=== PATIENT | female | born 1995 | race American Indian/Alaskan Native ===

== ENCOUNTER 2018-05-10 16:14 | Inpatient (IN) | payer OTHER ==
[2018-05-10] MEDS ORDERED: NACL 0.9% 1000 ML 1,000 ML IV ONE (16:36)
[2018-05-10] MEDS ORDERED: BENADRYL IV ONE (16:37)
[2018-05-10] MEDS ORDERED: MORPHINE IV ONE (16:37)
[2018-05-10] MEDS ORDERED: REGLAN IV ONE (16:37)
[2018-05-10] MEDS ORDERED: PEPCID IV ONE (16:38)
--- NOTE | 2018-05-10 16:49 | Emergency Department Report ---
HPI - General Chief Complaint: Abdominal Pain Time Seen by Provider: 05/10/18 16:26 - HPI HPI: Room 7 The patient is a 23-year-old female presenting with a chief complaint of abdominal pain. Patient states her symptoms began 2 days ago with diffuse abdo alexander pain described as a "hurt." Patient denies fever diarrhea or dysuria. Patient admits to nausea and vomiting for the past 2 days as well. Patient denies vaginal bleeding or hematuria. The patient went to [facility] when her symptoms began. The patient says she was evaluated and discharged but never filled her prescription for Phenergan. Patient presented to this ED yesterday and received a pelvic ultrasound which revealed an intrauterine and medication. Per the previous physician's note the patient's pain had resolved. Patient was discharged home. Patient returns to the ED with the same pain. Location: Abdomen Duration: Intermittent 2-3 days Quality: "Hurt" Severity: Severe Modifying factors: [see above] Context: [see above] Mode of transportation: [not driving] ED Past Medical Hx - Surgical History Past Surgical History?: No Additional Surgical History: - Family History Family history: no significant - Social History Smoking Status: Never Smoker Substance Use Type: None (denies illicit drug use) ED Review of Systems ROS: Stated complaint: ABDONIMAL PAIN Other details as noted in HPI Constitutional: denies: fever Eyes: denies: eye pain ENT: denies: throat pain Respiratory: no symptoms reported Cardiovascular: denies: chest pain Endocrine: no symptoms reported Gastrointestinal: abdominal pain, nausea, vomiting. denies: diarrhea Genitourinary: denies: dysuria, discharge, abnormal menses Musculoskeletal: denies: back pain Neurological: denies: headache Physical Exam - Physical Exam Vital Signs: Vital Signs 05/10/18 16:25 Temperature 99.1 F Pulse Rate 60 Respiratory 18 Rate Blood Pressure 165/63 O2 Sat by Pulse 97 Oximetry Physical Exam: GENERAL: The patient is well-developed well-nourished female lying on stretcher. In moderate discomfort. [] HEENT: Normocephalic. Atraumatic. Extraocular motions are intact. Patient has moist mucous membranes. NECK: Supple. Trachea midline CHEST/LUNGS: Clear to auscultation. There is no respiratory distress noted. HEART/CARDIOVASCULAR: Regular. There is no tachycardia. There is no gallop rub or murmur. ABDOMEN: Abdomen is soft, with diffuse tenderness to palpation. There is no rebound or guarding. Patient has normal bowel sounds. There is no abdominal distention. SKIN: There is no rash. There is no edema. There is no diaphoresis. NEURO: The patient is awake, alert, and oriented. The patient is cooperative. The patient has normal speech. MUSCULOSKELETAL: There is no evidence of acute injury. ED Course Vital Signs 05/10/18 16:25 Temperature 99.1 F Pulse Rate 60 Respiratory 18 Rate Blood Pressure 165/63 O2 Sat by Pulse 97 Oximetry - Reevaluation(s) Reevaluation #1: 05/10/18 19:11 Patient improved - Consultations Consultation #1: 05/10/18 18:47 Surgery paged- case discussed with Dr. Arguello, Will consult Consultation #2: 05/10/18 19:03 PROPERTY ADMINISTRATOR paged ED Medical Decision Making - Lab Data Result diagrams: 05/10/18 16:41 05/10/18 16:41 Laboratory Tests 05/10/18 05/10/18 05/10/18 16:41 16:41 16:41 WBC 15.2 H RBC 4.53 Hgb 12.9 Hct 37.2 MCV 82 MCH 28 MCHC 35 H RDW 15.3 H Plt Count 303 Lymph % (Auto) 10.6 L [place] % (Auto) 3.0 Eos % (Auto) 0.0 Baso % (Auto) 0.3 Lymph # 1.6 [place] # 0.5 Eos # 0.0 Baso # 0.1 Seg Neutrophils % 86.1 H Seg Neutrophils # 13.1 H Sodium 136 L Potassium 3.3 L Chloride 97.5 L Carbon Dioxide 22 Anion Gap 20 BUN 3 L Creatinine 0.4 L Estimated GFR > 60 BUN/Creatinine Ratio 8 Glucose 90 Calcium 9.9 Total Bilirubin 0.50 AST 11 ALT 19 Alkaline Phosphatase 81 Total Protein 7.5 Albumin 4.6 Albumin/Globulin Ratio 1.6 Amylase 54 Lipase 12 L HCG, Quant Urine Color Urine Turbidity Urine pH Ur Specific [place] Urine Protein Urine Glucose (UA) Urine Ketones Urine Blood Urine Nitrite Urine Bilirubin Urine Urobilinogen Ur Leukocyte Esterase Urine WBC (Auto) Urine RBC (Auto) U Epithel Cells (Auto) Urine Mucus 05/10/18 05/10/18 16:41 18:00 WBC RBC Hgb Hct MCV MCH MCHC RDW Plt Count Lymph % (Auto) [place] % (Auto) Eos % (Auto) Baso % (Auto) Lymph # [place] # Eos # Baso # Seg Neutrophils % Seg Neutrophils # Sodium Potassium Chloride Carbon Dioxide Anion Gap BUN Creatinine Estimated GFR BUN/Creatinine Ratio Glucose Calcium Total Bilirubin AST ALT Alkaline Phosphatase Total Protein Albumin Albumin/Globulin Ratio Amylase Lipase HCG, Quant 80896 H Urine Color Yellow Urine Turbidity Cloudy Urine pH 6.0 Ur Specific [place] 1.014 Urine Protein 100 mg/dl Urine Glucose (UA) Neg Urine Ketones 80 Urine Blood Neg Urine Nitrite Neg Urine Bilirubin Neg Urine Urobilinogen < 2.0 Ur Leukocyte Esterase Neg Urine WBC (Auto) 2.0 Urine RBC (Auto) 1.0 U Epithel Cells (Auto) 9.0 Urine Mucus 1+ - Radiology Data Radiology results: report reviewed (abdominal ultrasound), image reviewed (abdominal ultrasound) [facility] [address] [place] [address] Ultrasound Report Signed Patient: CAPO HEALY MR#: [id number] : 1995 Acct:[id number] Age/Sex: 23 / F ADM Date: 05/10/18 Loc: ED Attending Dr: Ordering Physician: KELLIE BENITO MD Date of Service: 05/10/18 Procedure(s): US abdomen limited Accession Number(s): [id number] cc: KELLIE BENITO MD FINAL REPORT EXAM: US ABDOMEN LIMITED HISTORY: abdominal pain nausea vomiting TECHNIQUE: Ultrasound abdomen PRIORS: None. FINDINGS: No focal abnormalities identified in the visualized portion liver parenchyma. No evidence of cholelithiasis or gallbladder wall thickening. No pericholecystic fluid seen. The common bile duct is within normal limits measuring 0.38 centimeters Right kidney demonstrates no evidence of hydronephrosis. It measures 10.7 x 5.2 x 6.4 centimeters IMPRESSION: Negative. No evidence of biliary obstruction or cholelithiasis Transcribed By: Cristina Dictated By: ANIYA BREWER MD Electronically Authenticated By: ANIYA BREWER MD Signed Date/Time: 05/10/181841 DD/ 44 TD/TT: 05/10/181844 - Differential Diagnosis hyperemesis gravidarum, cholelithiasis, gastritis Critical care attestation.: If time is entered above; I have spent that time in minutes in the direct care of this critically ill patient, excluding procedure time. ED Disposition Clinical Impression: Abdominal pain, , Ketonuria, Leukocytosis Disposition: OP ADMIT IP TO THIS HOSP Is pt being admited?: Yes Does the pt Need Aspirin: Yes Condition: Fair Instructions: Abdominal Pain (ED) Referrals: PRIMARY CARE,MD [Primary Care Provider] - 3-5 Days Time of Disposition: 19:15 (hospitalist paged (Dr Woods))
[2018-05-10 16:59] LABS: Basophils # (Auto) 0.1 K/mm3 (0.0-0.1); Basophils % (Auto) 0.3 % (0.0-1.8); Hematocrit 37.2 % (30.3-42.9); Hemoglobin 12.9 gm/dl (10.1-14.3); Lymphocytes # (Auto) 1.6 K/mm3 (1.2-5.4); Lymphocytes % (Auto) 10.6 % (13.4-35.0); Mean Corpuscular HGB Conc 35 % (30-34); Mean Corpuscular Hemoglobin 28 pg (28-32); Mean Corpuscular Volume 82 fl (79-97); Monocytes # (Auto) 0.5 K/mm3 (0.0-0.8); Platelet Count 303 K/mm3 (140-440); Red Blood Count 4.53 M/mm3 (3.65-5.03); Red Cell Distribution Width 15.3 % (13.2-15.2)
[2018-05-10 17:15] LABS: Alanine Aminotransferase 19 units/L (7-56); Albumin 4.6 g/dL (3.9-5); BUN/Creatinine Ratio 8; Blood Urea Nitrogen 3 mg/dL (7-17); Calcium 9.9 mg/dL (8.4-10.2); Hemolysis Index 17
--- NOTE | 2018-05-10 18:42 | Ultrasound Report ---
FINAL REPORT EXAM: US ABDOMEN LIMITED HISTORY: abdominal pain nausea vomiting TECHNIQUE: Ultrasound abdomen PRIORS: None. FINDINGS: No focal abnormalities identified in the visualized portion liver parenchyma. No evidence of cholelithiasis or gallbladder wall thickening. No pericholecystic fluid seen. The common bile duct is within normal limits measuring 0.38 centimeters Right kidney demonstrates no evidence of hydronephrosis. It measures 10.7 x 5.2 x 6.4 centimeters IMPRESSION: Negative. No evidence of biliary obstruction or cholelithiasis
[2018-05-10 19:03] LABS: Bilirubin,Urine NEG (Negative); Blood,Urine NEG (Negative); Color,Urine Yellow (Yellow); Mucus,Urine 1+ /HPF; Urobilinogen,Urine < 2.0 mg/dL (<2.0)
[2018-05-10] MEDS ORDERED: SODIUM CHLORIDE FLUSH SYRINGE 10 ML IV PRN (21:52)
[2018-05-10] MEDS ORDERED: TYLENOL PO PRN (21:52)
[2018-05-10] MEDS ORDERED: D5NS 1,000 ML IV SCH (22:00)
--- NOTE | 2018-05-10 22:06 | History and Physical Report ---
History of Present Illness Date of examination: 05/10/18 Date of admission: 05/10/18 Chief complaint: CC Abdominal pain for 3 days History of present illness: [place]: 23-year-old female presenting with a chief complaint of RLQ pain.patient has come to the ER 3 times.Was treted 2 times and was sent home. Patient states her symptoms began 2 days ago with diffuse abdominal pain described as a "hurt." patient is 9 weeks . Patient denies fever diarrhea or dysuria. Patient admits to nausea and vomiting for the past 2 days as well. Patient denies vaginal bleeding or hematuria. The patient went to [facility] when her symptoms began. The patient says she was evaluated and discharged but never filled her prescription for Phenergan. Patient presented to this ED yesterday and received a pelvic ultrasound which revealed an intrauterine and medication. Per the previous physician's note the patient's pain had resolved. Patient was discharged home. Patient returns to the ED with the same pain. Past Medical History None Surgical History Past Surgical History?: No Additional Surgical History: Family History Family history: no significant Social History Smoking Status: Never Smoker Substance Use Type: None (denies illicit drug use) Review of Systems ROS: Stated complaint: ABDONIMAL PAIN Other details as noted in HPI Constitutional: denies: fever Eyes: denies: eye pain ENT: denies: throat pain Respiratory: no symptoms reported Cardiovascular: denies: chest pain Endocrine: no symptoms reported Gastrointestinal: abdominal pain, nausea, vomiting. denies: diarrhea Genitourinary: denies: dysuria, discharge, abnormal menses Musculoskeletal: denies: back pain Neurological: denies: headache Medications and Allergies Allergies Allergy/AdvReac Type Severity Reaction Status Date / Time No Known Allergies Allergy Unverified 05/09/18 18:01 Active Meds: Active Medications Acetaminophen (Tylenol) 650 mg PO Q4H PRN PRN Reason: Pain MILD(1-3)/Fever >100.5/STEEL Dextrose/Sodium Chloride (D5ns) 1,000 mls @ 75 mls/hr IV DIRECT RAISA Ceftriaxone Sodium (Rocephin/Ns 2 Gm/100 Ml) 2 gm in 100 mls @ 200 mls/hr IV Q24HR RAISA; Protocol Morphine Sulfate (Morphine) 2 mg IV Q4H PRN PRN Reason: Pain, Moderate (4-6) Ondansetron HCl (Zofran) 4 mg IV Q8H PRN PRN Reason: Nausea And Vomiting Sodium Chloride (Sodium Chloride Flush Syringe 10 Ml) 10 ml IV BID RAISA Sodium Chloride (Sodium Chloride Flush Syringe 10 Ml) 10 ml IV PRN PRN PRN Reason: LINE FLUSH Exam - Constitutional Vitals: Temp Pulse Resp BP Pulse Ox 98 F 49 L 20 128/64 100 05/10/18 19:37 05/10/18 19:37 05/10/18 19:37 05/10/18 19:37 05/10/18 19:37 General appearance: Present: no acute distress, well-nourished - EENT Eyes: Present: PERRL ENT: hearing intact, clear oral mucosa - Neck Neck: Present: supple, normal ROM - Respiratory Respiratory effort: normal Respiratory: bilateral: CTA - Cardiovascular Heart rate: 76 Rhythm: regular Heart Sounds: Present: S1 & S2. Absent: rub, click - Extremities Extremities: no ischemia, pulses intact, pulses symmetrical, No edema Peripheral Pulses: within normal limits - Abdominal General gastrointestinal: Present: soft, non-tender, non-distended, normal bowel sounds Localized gastrointestinal: tender: RLQ Female genitourinary: Present: normal - Rectal Rectal Exam: deferred - Integumentary Integumentary: Present: clear, warm, dry - Musculoskeletal Musculoskeletal: gait normal, strength equal bilaterally - Psychiatric Psychiatric: appropriate mood/affect, intact judgment & insight - Neurologic Neurologic: CNII-XII intact, moves all extremities - Allied Health Allied health notes reviewed: nursing, case management Results - Labs CBC & Chem 7: 05/10/18 16:41 05/10/18 16:41 Labs: Laboratory Last Values WBC 15.2 K/mm3 (4.5-11.0) H 05/10/18 16:41 RBC 4.53 M/mm3 (3.65-5.03) 05/10/18 16:41 Hgb 12.9 gm/dl (10.1-14.3) 05/10/18 16:41 Hct 37.2 % (30.3-42.9) 05/10/18 16:41 MCV 82 fl (79-97) 05/10/18 16:41 MCH 28 pg (28-32) 05/10/18 16:41 MCHC 35 % (30-34) H 05/10/18 16:41 RDW 15.3 % (13.2-15.2) H 05/10/18 16:41 Plt Count 303 K/mm3 (140-440) 05/10/18 16:41 Lymph % (Auto) 10.6 % (13.4-35.0) L 05/10/18 16:41 [place] % (Auto) 3.0 % (0.0-7.3) 05/10/18 16:41 Eos % (Auto) 0.0 % (0.0-4.3) 05/10/18 16:41 Baso % (Auto) 0.3 % (0.0-1.8) 05/10/18 16:41 Lymph # 1.6 K/mm3 (1.2-5.4) 05/10/18 16:41 Love # 0.5 K/mm3 (0.0-0.8) 05/10/18 16:41 Eos # 0.0 K/mm3 (0.0-0.4) 05/10/18 16:41 Baso # 0.1 K/mm3 (0.0-0.1) 05/10/18 16:41 Seg Neutrophils % 86.1 % (40.0-70.0) H 05/10/18 16:41 Seg Neutrophils # 13.1 K/mm3 (1.8-7.7) H 05/10/18 16:41 Sodium 136 mmol/L (137-145) L 05/10/18 16:41 Potassium 3.3 mmol/L (3.6-5.0) L 05/10/18 16:41 Chloride 97.5 mmol/L (98-107) L 05/10/18 16:41 Carbon Dioxide 22 mmol/L (22-30) 05/10/18 16:41 Anion Gap 20 mmol/L 05/10/18 16:41 BUN 3 mg/dL (7-17) L 05/10/18 16:41 Creatinine 0.4 mg/dL (0.7-1.2) L 05/10/18 16:41 Estimated GFR > 60 ml/min 05/10/18 16:41 BUN/Creatinine Ratio 8 % 05/10/18 16:41 Glucose 90 mg/dL (65-100) 05/10/18 16:41 Calcium 9.9 mg/dL (8.4-10.2) 05/10/18 16:41 Total Bilirubin 0.50 mg/dL (0.1-1.2) 05/10/18 16:41 AST 11 units/L (5-40) 05/10/18 16:41 ALT 19 units/L (7-56) 05/10/18 16:41 Alkaline Phosphatase 81 units/L (35-129) 05/10/18 16:41 Total Protein 7.5 g/dL (6.3-8.2) 05/10/18 16:41 Albumin 4.6 g/dL (3.9-5) 05/10/18 16:41 Albumin/Globulin Ratio 1.6 % 05/10/18 16:41 Amylase 54 units/L (27-131) 05/10/18 16:41 Lipase 12 units/L (13-60) L 05/10/18 16:41 HCG, Quant 26393 mIU/mL (0-4) H 05/10/18 16:41 Urine Color Yellow (Yellow) 05/10/18 18:00 Urine Turbidity Cloudy (Clear) 05/10/18 18:00 Urine pH 6.0 (5.0-7.0) 05/10/18 18:00 Ur Specific [place] 1.014 (1.003-1.030) 05/10/18 18:00 Urine Protein 100 mg/dl mg/dL (Negative) 05/10/18 18:00 Urine Glucose (UA) Neg mg/dL (Negative) 05/10/18 18:00 Urine Ketones 80 mg/dL (Negative) 05/10/18 18:00 Urine Blood Neg (Negative) 05/10/18 18:00 Urine Nitrite Neg (Negative) 05/10/18 18:00 Urine Bilirubin Neg (Negative) 05/10/18 18:00 Urine Urobilinogen < 2.0 mg/dL (<2.0) 05/10/18 18:00 Ur Leukocyte Esterase Neg (Negative) 05/10/18 18:00 Urine WBC (Auto) 2.0 /HPF (0.0-6.0) 05/10/18 18:00 Urine RBC (Auto) 1.0 /HPF (0.0-6.0) 05/10/18 18:00 U Epithel Cells (Auto) 9.0 /HPF (0-13.0) 05/10/18 18:00 Urine Mucus 1+ /HPF 05/10/18 18:00 - Imaging and Cardiology Imaging and Cardiology: Abd u/s IMPRESSION: Negative. No evidence of biliary obstruction or cholelithiasis Assessment and Plan Advance Directives: Yes (Full code) VTE prophylaxis?: Mechanical Plan of care discussed with patient/family: Yes - Patient Problems (1) Acute abdominal pain Current Visit: Yes Status: Acute Plan to address problem: Possible Appendicitis IV Ceftriaxone initiated Surgery consult requested Accounts Adjustable Clerk consult requested (2) Current Visit: Yes Status: Acute Qualifiers: Weeks of gestation: 9 weeks Qualified Code(s): Z3A.09 - 9 weeks gestation of Plan to address problem: Accounts Adjustable Clerk consult requested (3) Hyperemesis complicating , antepartum Current Visit: Yes Status: Acute Plan to address problem: possible Hyperemesis IV Zofran prn (4) Hypokalemia Current Visit: Yes Status: Acute Plan to address problem: Supplemented (5) DVT prophylaxis Current Visit: Yes Status: Acute Plan to address problem: on SCD's
[2018-05-10] MEDS ORDERED: K-DUR PO ONE ×2 (22:12→23:09)
[2018-05-10] MEDS: SODIUM CHLORIDE FLUSH SYRINGE 10 ML IV SCH (23:09)
[2018-05-11] MEDS: ROCEPHIN/NS 2 GM/100 ML 2 GM/100 ML BAG IV SCH ×2 (00:20→21:36)
[2018-05-11 05:15] LABS: Alanine Aminotransferase 15 units/L (7-56); Albumin 3.6 g/dL (3.9-5); BUN/Creatinine Ratio 10; Blood Urea Nitrogen 4 mg/dL (7-17); Calcium 8.6 mg/dL (8.4-10.2); Hemolysis Index 10
--- NOTE | 2018-05-11 05:50 | Consultation ---
History of Present Illness Consult date: 05/11/18 Requesting physician: TAMIKO HAQUE Reason for consult: pelvic pain History of present illness: The patient is a 23-year-old black female presenting with a chief complaint of abdominal pain. Patient states her symptoms began 2 days ago with diffuse abdominal pain described as a "hurt." Patient denies fever diarrhea or dysuria. Patient admits to nausea and vomiting for the past 2 days as well. Patient denies vaginal bleeding or hematuria. The patient went to [facility] when her symptoms began. The patient says she was evaluated and discharged but never filled her prescription for Phenergan. Patient presented to this ED yesterday and received a pelvic ultrasound which revealed an intrauterine . Per the previous physician's note the patient's pain had resolved. Patient was discharged home. Patient returns to the ED with the same pain. Past History Past Medical History: no pertinent history Past Surgical History: section Social history: no significant social history, single Medications and Allergies Allergies Allergy/AdvReac Type Severity Reaction Status Date / Time No Known Allergies Allergy Unverified 05/09/18 18:01 Active Meds: Active Medications Acetaminophen (Tylenol) 650 mg PO Q4H PRN PRN Reason: Pain MILD(1-3)/Fever >100.5/STEEL Dextrose/Sodium Chloride (D5ns) 1,000 mls @ 75 mls/hr IV DIRECT [facility] Last Admin: 05/11/18 00:18 Dose: 75 mls/hr Documented by: Ceftriaxone Sodium (Rocephin/Ns 2 Gm/100 Ml) 2 gm in 100 mls @ 200 mls/hr IV Q24HR@2200 [facility]; Protocol Last Admin: 05/11/18 00:20 Dose: 200 mls/hr Documented by: Morphine Sulfate (Morphine) 2 mg IV Q4H PRN PRN Reason: Pain, Moderate (4-6) Ondansetron HCl (Zofran) 4 mg IV Q8H PRN PRN Reason: Nausea And Vomiting Sodium Chloride (Sodium Chloride Flush Syringe 10 Ml) 10 ml IV BID [facility] Last Admin: 05/10/18 23:09 Dose: 10 ml Documented by: Sodium Chloride (Sodium Chloride Flush Syringe 10 Ml) 10 ml IV PRN PRN PRN Reason: LINE FLUSH Review of Systems All systems: negative - Vital Signs Vital signs: Vital Signs Temp Pulse Resp BP Pulse Ox 99.1 F 60 18 165/63 97 05/10/18 16:25 05/10/18 16:25 05/10/18 16:25 05/10/18 16:25 05/10/18 16:25 Temp Pulse Resp BP Pulse Ox 98.3 F 47 L 16 148/69 100 05/10/18 23:34 05/10/18 23:34 05/10/18 23:34 05/10/18 23:34 05/10/18 23:34 - Physical Exam Breasts: Positive: deferred Cardiovascular: Regular rate Lungs: Positive: Clear to auscultation Abdomen: Positive: normal appearance, soft Results Result Diagrams: 05/10/18 16:41 05/11/18 04:23 Abnormal lab results 05/10/18 05/10/18 05/10/18 Range/Units 16:41 16:41 16:41 WBC 15.2 H (4.5-11.0) K/mm3 MCHC 35 H (30-34) % RDW 15.3 H (13.2-15.2) % Lymph % (Auto) 10.6 L (13.4-35.0) % Seg Neutrophils % 86.1 H (40.0-70.0) % Seg Neutrophils # 13.1 H (1.8-7.7) K/mm3 Sodium 136 L (137-145) mmol/L Potassium 3.3 L (3.6-5.0) mmol/L Chloride 97.5 L (98-107) mmol/L BUN 3 L (7-17) mg/dL Creatinine 0.4 L (0.7-1.2) mg/dL Total Protein (6.3-8.2) g/dL Albumin (3.9-5) g/dL Lipase 12 L (13-60) units/L HCG, Quant (0-4) mIU/mL 05/10/18 05/11/18 Range/Units 16:41 04:23 WBC (4.5-11.0) K/mm3 MCHC (30-34) % RDW (13.2-15.2) % Lymph % (Auto) (13.4-35.0) % Seg Neutrophils % (40.0-70.0) % Seg Neutrophils # (1.8-7.7) K/mm3 Sodium (137-145) mmol/L Potassium 2.9 L* (3.6-5.0) mmol/L Chloride (98-107) mmol/L BUN 4 L (7-17) mg/dL Creatinine 0.4 L (0.7-1.2) mg/dL Total Protein 6.1 L (6.3-8.2) g/dL Albumin 3.6 L (3.9-5) g/dL Lipase (13-60) units/L HCG, Quant 79607 H (0-4) mIU/mL All other labs normal. Ultrasound: pending Assessment and Plan - Patient Problems (1) Abdominal pain Onset Date: 05/11/18 Current Visit: Yes Status: Acute Qualifiers: Abdominal location: right lower quadrant Qualified Code(s): R10.31 - Right lower quadrant pain Plan to address problem: A: Abdominal pain - pt states a pelvic u/s was performed showing IUP Hyperemesis Hypokalemia P: Will need u/s to confirm IUP IV antiemetics Replete K+ Awaiting General Surgery evaluation (2) Hyperemesis complicating , antepartum Onset Date: 05/11/18 Current Visit: Yes Status: Acute (3) Hypokalemia Onset Date: 05/11/18 Current Visit: Yes Status: Acute
[2018-05-11] MEDS: D5W/NS W/KCL 20MEQ 20 MEQ/1,000 ML BAG IV SCH (10:19)
[2018-05-11] MEDS: SODIUM CHLORIDE FLUSH SYRINGE 10 ML IV SCH ×2 (10:20→21:36)
--- NOTE | 2018-05-11 13:28 | Ultrasound Report ---
ULTRASOUND OB LESS THAN 14 WEEKS - TRANSABDOMINAL AND TRANSVAGINAL INDICATION: Pelvic pain. Serum beta-hCG 80,951 units. COMPARISON: 05/09/2018. FINDINGS: Transabdominal and transvaginal pelvic sonography performed in this patient with LMP of 03/05/2018 and estimated menstrual age of 9 weeks and 4 days. It demonstrates a somewhat retroflexed, gravid uterus estimated at 9.7 x 7.7 x 7.3 cm with a single, viable intrauterine gestation with heart rate of 178 beats per minute. Mean gestational sac diameter of 4.3 cm corresponds to 9 weeks and 6 days. Mean crown-rump length of 2.69 cm corresponds to 9 weeks and 3 days. No significant pelvic free fluid. Maternal ovaries somewhat difficult to visualize bilaterally, though grossly estimated at 3 x 1.9 x 2.5 cm on the right and 3.1 x 2.1 x 2.3 cm on the left. CONCLUSION: 1. Single, live intrauterine gestation with an ultrasound estimated age of 9 weeks and 3 days and LOI of 12/11/2018. 2. Other findings, as above. Thank you for the opportunity to participate in this patient's care.
--- NOTE | 2018-05-11 13:36 | Consultation ---
History of Present Illness Consult date: 05/11/18 Chief complaint: n/v, abdominal pain - History of present illness History of present illness: 23 yo F currently 9 weeks presents to ER with c/o nausea, vomiting and abdominal pain. The patient states that she has had intermittent symptoms for the last several days. She was seen in the ER one day ago and felt better, so she was discharged. She returned 24 hours later with the same symptoms. Patient states she had too many to count episodes of emesis. There was some blood mixed after many episodes of vomiting. She then started to experience epigastric abdominal pain. She denies any exacerbating factors. She now feels completely well with resolution of all symptoms. She feels hungry. She denies sick contacts. No f/c, cp, sob. She states she feels very constipated. Past History Past Medical History: No medical history Past Surgical History: Social history: no significant social history, single Family history: no significant family history Medications and Allergies Allergies Allergy/AdvReac Type Severity Reaction Status Date / Time No Known Allergies Allergy Unverified 05/09/18 18:01 Active Meds: Active Medications Acetaminophen (Tylenol) 650 mg PO Q4H PRN PRN Reason: Pain MILD(1-3)/Fever >100.5/STEEL Ceftriaxone Sodium (Rocephin/Ns 2 Gm/100 Ml) 2 gm in 100 mls @ 200 mls/hr IV Q24HR@2200 RAISA; Protocol Last Admin: 05/11/18 00:20 Dose: 200 mls/hr Documented by: Potassium Chloride/Dextrose/Sod Cl (D5w/Ns W/Kcl 20meq) 20 meq in 1,000 mls @ 125 mls/hr IV DIRECT RAISA Last Admin: 05/11/18 10:19 Dose: 125 mls/hr Documented by: Potassium Chloride (Kcl 10meq/100ml) 10 meq in 100 mls @ 100 mls/hr IV Q1H [facility] Stop: 05/11/18 13:59 Morphine Sulfate (Morphine) 2 mg IV Q4H PRN PRN Reason: Pain, Moderate (4-6) Ondansetron HCl (Zofran) 4 mg IV Q8H PRN PRN Reason: Nausea And Vomiting Sodium Chloride (Sodium Chloride Flush Syringe 10 Ml) 10 ml IV BID [facility] Last Admin: 05/11/18 10:20 Dose: Not Given Documented by: Sodium Chloride (Sodium Chloride Flush Syringe 10 Ml) 10 ml IV PRN PRN PRN Reason: LINE FLUSH Review of Systems All systems: negative (10 pt ROS performed and negative except for that listed in HPI) Exam Vital Signs Temp Pulse Resp BP Pulse Ox 99.1 F 60 18 165/63 97 05/10/18 16:25 05/10/18 16:25 05/10/18 16:25 05/10/18 16:25 05/10/18 16:25 Narrative exam: Gen: AAOx3. NAD CV: S1, S2+ resp: even and unlabored Abd: soft, NT, ND, no r/r/g Ext: no c/c/e Results - Labs 05/10/18 16:41 05/11/18 04:23 Abnormal lab results 05/10/18 05/10/18 05/10/18 Range/Units 16:41 16:41 16:41 WBC 15.2 H (4.5-11.0) K/mm3 MCHC 35 H (30-34) % RDW 15.3 H (13.2-15.2) % Lymph % (Auto) 10.6 L (13.4-35.0) % Seg Neutrophils % 86.1 H (40.0-70.0) % Seg Neutrophils # 13.1 H (1.8-7.7) K/mm3 Sodium 136 L (137-145) mmol/L Potassium 3.3 L (3.6-5.0) mmol/L Chloride 97.5 L (98-107) mmol/L BUN 3 L (7-17) mg/dL Creatinine 0.4 L (0.7-1.2) mg/dL Total Protein (6.3-8.2) g/dL Albumin (3.9-5) g/dL Lipase 12 L (13-60) units/L HCG, Quant (0-4) mIU/mL 05/10/18 05/11/18 Range/Units 16:41 04:23 WBC (4.5-11.0) K/mm3 MCHC (30-34) % RDW (13.2-15.2) % Lymph % (Auto) (13.4-35.0) % Seg Neutrophils % (40.0-70.0) % Seg Neutrophils # (1.8-7.7) K/mm3 Sodium (137-145) mmol/L Potassium 2.9 L* (3.6-5.0) mmol/L Chloride (98-107) mmol/L BUN 4 L (7-17) mg/dL Creatinine 0.4 L (0.7-1.2) mg/dL Total Protein 6.1 L (6.3-8.2) g/dL Albumin 3.6 L (3.9-5) g/dL Lipase (13-60) units/L HCG, Quant 38396 H (0-4) mIU/mL Diabetes panel 05/10/18 05/11/18 Range/Units 16:41 04:23 Sodium 136 L 139 (137-145) mmol/L Potassium 3.3 L 2.9 L* (3.6-5.0) mmol/L Chloride 97.5 L 103.2 (98-107) mmol/L Carbon Dioxide 22 23 (22-30) mmol/L BUN 3 L 4 L (7-17) mg/dL Creatinine 0.4 L 0.4 L (0.7-1.2) mg/dL Glucose 90 87 (65-100) mg/dL Calcium 9.9 8.6 (8.4-10.2) mg/dL AST 11 10 (5-40) units/L ALT 19 15 (7-56) units/L Alkaline Phosphatase 81 62 (35-129) units/L Total Protein 7.5 6.1 L (6.3-8.2) g/dL Albumin 4.6 3.6 L (3.9-5) g/dL Calcium panel 05/10/18 05/11/18 Range/Units 16:41 04:23 Calcium 9.9 8.6 (8.4-10.2) mg/dL Albumin 4.6 3.6 L (3.9-5) g/dL Pituitary panel 05/10/18 05/11/18 Range/Units 16:41 04:23 Sodium 136 L 139 (137-145) mmol/L Potassium 3.3 L 2.9 L* (3.6-5.0) mmol/L Chloride 97.5 L 103.2 (98-107) mmol/L Carbon Dioxide 22 23 (22-30) mmol/L BUN 3 L 4 L (7-17) mg/dL Creatinine 0.4 L 0.4 L (0.7-1.2) mg/dL Glucose 90 87 (65-100) mg/dL Calcium 9.9 8.6 (8.4-10.2) mg/dL Adrenal panel 05/10/18 05/11/18 Range/Units 16:41 04:23 Sodium 136 L 139 (137-145) mmol/L Potassium 3.3 L 2.9 L* (3.6-5.0) mmol/L Chloride 97.5 L 103.2 (98-107) mmol/L Carbon Dioxide 22 23 (22-30) mmol/L BUN 3 L 4 L (7-17) mg/dL Creatinine 0.4 L 0.4 L (0.7-1.2) mg/dL Glucose 90 87 (65-100) mg/dL Calcium 9.9 8.6 (8.4-10.2) mg/dL Total Bilirubin 0.50 0.30 (0.1-1.2) mg/dL AST 11 10 (5-40) units/L ALT 19 15 (7-56) units/L Alkaline Phosphatase 81 62 (35-129) units/L Total Protein 7.5 6.1 L (6.3-8.2) g/dL Albumin 4.6 3.6 L (3.9-5) g/dL - Imaging US - abdomen: report reviewed, image reviewed Assessment and Plan 23 yo F with 1. n/v 2.abdominal pain 3. 9 week IUP 4. hypokalemia 5. constipation Plan: The patient states symptoms have resolved. She likely has hyperemesis gra vidarium. 1. start clear liquid diet and adv as tolerated 2. IVF, add K 3. replace K 4. repeat CBC 5. bowel regimen No surgical intervention at this time. OB on board. Thank you, please call with questions.
[2018-05-11 13:55] LABS: Hematocrit 35.6 % (30.3-42.9); Hemoglobin 11.5 gm/dl (10.1-14.3); Mean Corpuscular HGB Conc 32 % (30-34); Mean Corpuscular Hemoglobin 27 pg (28-32); Mean Corpuscular Volume 83 fl (79-97); Platelet Count 302 K/mm3 (140-440); Red Blood Count 4.27 M/mm3 (3.65-5.03); Red Cell Distribution Width 15.3 % (13.2-15.2)
[2018-05-11] MEDS: KCL 10MEQ/100ML 10 MEQ/100 ML BAG IV SCH ×3 (14:16→20:46)
[2018-05-11] MEDS: COLACE PO SCH ×2 (15:32→21:36)
[2018-05-11] MEDS: ZOFRAN IV PRN ×2 (16:25→23:52)
[2018-05-11] MEDS: MORPHINE IV PRN ×2 (16:31→20:40)
[2018-05-11] MEDS ORDERED: DILAUDID IM ONE (17:15)
[2018-05-11] MEDS ORDERED: DILAUDID IV ONE (19:00)
[2018-05-12] MEDS: KCL 10MEQ/100ML 10 MEQ/100 ML BAG IV SCH ×7 (05:25→20:03)
[2018-05-12] MEDS: MORPHINE IV PRN ×4 (07:22→22:51)
[2018-05-12] MEDS: ZOFRAN IV PRN ×3 (07:27→22:51)
[2018-05-12] MEDS ORDERED: MYLICON PO PRN (07:36)
[2018-05-12] MEDS: REGLAN IV PRN ×3 (07:52→18:43)
[2018-05-12] MEDS: APRESOLINE IV PRN ×2 (07:53→20:01)
--- NOTE | 2018-05-12 08:19 | Progress Note ---
Assessment and Plan - Patient Problems (1) Acute abdominal pain Current Visit: Yes Status: Acute Plan to address problem: Possible Appendicitis IV Ceftriaxone initiated No surgical cause (2) Current Visit: Yes Status: Acute Qualifiers: Weeks of gestation: 9 weeks Qualified Code(s): Z3A.09 - 9 weeks gestation of Plan to address problem: Ship Captain consult requested (3) Hyperemesis complicating , antepartum Onset Date: 05/11/18 Current Visit: Yes Status: Acute Plan to address problem: possible Hyperemesis IV Zofran prn (4) Hypokalemia Onset Date: 05/11/18 Current Visit: Yes Status: Acute Plan to address problem: Supplemented (5) DVT prophylaxis Current Visit: Yes Status: Acute Plan to address problem: on SCD's History Interval history: Continues to have Abdominal pain Hospitalist Physical - Constitutional Vitals: Temp Pulse Resp BP Pulse Ox 98.2 F 53 L 18 202/107 99 05/11/18 23:56 05/12/18 07:53 05/12/18 07:22 05/12/18 07:53 05/11/18 23:56 General appearance: Present: mild distress, well-nourished - Respiratory Respiratory: bilateral: CTA - Cardiovascular Heart rate: 78 Rhythm: regular - Extremities Extremities: no ischemia, pulses intact, pulses symmetrical Peripheral Pulses: within normal limits - Abdominal General gastrointestinal: soft, non-tender - Integumentary Integumentary: Present: clear, warm - Psychiatric Psychiatric: appropriate mood/affect, intact judgment & insight, memory intact, cooperative - Neurologic Neurologic: CNII-XII intact, moves all extremities - Allied Health Allied health notes reviewed: nursing, case management Results - Labs CBC & Chem 7: 05/11/18 13:31 05/11/18 04:23 Labs: Laboratory Last Values WBC 10.9 K/mm3 (4.5-11.0) 05/11/18 13:31 RBC 4.27 M/mm3 (3.65-5.03) 05/11/18 13:31 Hgb 11.5 gm/dl (10.1-14.3) 05/11/18 13:31 Hct 35.6 % (30.3-42.9) 05/11/18 13:31 MCV 83 fl (79-97) 05/11/18 13:31 MCH 27 pg (28-32) L 05/11/18 13:31 MCHC 32 % (30-34) 05/11/18 13:31 RDW 15.3 % (13.2-15.2) H 05/11/18 13:31 Plt Count 302 K/mm3 (140-440) 05/11/18 13:31 Lymph % (Auto) 10.6 % (13.4-35.0) L 05/10/18 16:41 [place] % (Auto) 3.0 % (0.0-7.3) 05/10/18 16:41 Eos % (Auto) 0.0 % (0.0-4.3) 05/10/18 16:41 Baso % (Auto) 0.3 % (0.0-1.8) 05/10/18 16:41 Lymph # 1.6 K/mm3 (1.2-5.4) 05/10/18 16:41 [place] # 0.5 K/mm3 (0.0-0.8) 05/10/18 16:41 Eos # 0.0 K/mm3 (0.0-0.4) 05/10/18 16:41 Baso # 0.1 K/mm3 (0.0-0.1) 05/10/18 16:41 Seg Neutrophils % 86.1 % (40.0-70.0) H 05/10/18 16:41 Seg Neutrophils # 13.1 K/mm3 (1.8-7.7) H 05/10/18 16:41 Sodium 139 mmol/L (137-145) 05/11/18 04:23 Potassium 2.9 mmol/L (3.6-5.0) L* 05/11/18 04:23 Chloride 103.2 mmol/L (98-107) 05/11/18 04:23 Carbon Dioxide 23 mmol/L (22-30) 05/11/18 04:23 Anion Gap 16 mmol/L 05/11/18 04:23 BUN 4 mg/dL (7-17) L 05/11/18 04:23 Creatinine 0.4 mg/dL (0.7-1.2) L 05/11/18 04:23 Estimated GFR > 60 ml/min 05/11/18 04:23 BUN/Creatinine Ratio 10 % 05/11/18 04:23 Glucose 87 mg/dL (65-100) 05/11/18 04:23 POC Glucose 73 (70-105) 05/12/18 07:20 Calcium 8.6 mg/dL (8.4-10.2) 05/11/18 04:23 Total Bilirubin 0.30 mg/dL (0.1-1.2) 05/11/18 04:23 AST 10 units/L (5-40) 05/11/18 04:23 ALT 15 units/L (7-56) 05/11/18 04:23 Alkaline Phosphatase 62 units/L (35-129) 05/11/18 04:23 Total Protein 6.1 g/dL (6.3-8.2) L 05/11/18 04:23 Albumin 3.6 g/dL (3.9-5) L 05/11/18 04:23 Albumin/Globulin Ratio 1.4 % 05/11/18 04:23 Amylase 54 units/L (27-131) 05/10/18 16:41 Lipase 12 units/L (13-60) L 05/10/18 16:41 HCG, Quant 58458 mIU/mL (0-4) H 05/10/18 16:41 Urine Color Yellow (Yellow) 05/10/18 18:00 Urine Turbidity Cloudy (Clear) 05/10/18 18:00 Urine pH 6.0 (5.0-7.0) 05/10/18 18:00 Ur Specific [place] 1.014 (1.003-1.030) 05/10/18 18:00 Urine Protein 100 mg/dl mg/dL (Negative) 05/10/18 18:00 Urine Glucose (UA) Neg mg/dL (Negative) 05/10/18 18:00 Urine Ketones 80 mg/dL (Negative) 05/10/18 18:00 Urine Blood Neg (Negative) 05/10/18 18:00 Urine Nitrite Neg (Negative) 05/10/18 18:00 Urine Bilirubin Neg (Negative) 05/10/18 18:00 Urine Urobilinogen < 2.0 mg/dL (<2.0) 05/10/18 18:00 Ur Leukocyte Esterase Neg (Negative) 05/10/18 18:00 Urine WBC (Auto) 2.0 /HPF (0.0-6.0) 05/10/18 18:00 Urine RBC (Auto) 1.0 /HPF (0.0-6.0) 05/10/18 18:00 U Epithel Cells (Auto) 9.0 /HPF (0-13.0) 05/10/18 18:00 Urine Mucus 1+ /HPF 05/10/18 18:00
--- NOTE | 2018-05-12 08:28 | Event Note ---
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 S: Patient seen and examined. Patient is actively throwing up, retching followed by severe generalized abdominal pains. She is rubbing her belly all over. O: SBP 210 at beside, Heart Rate 56 which drops after morphine Gen: illappearing, bmi 34.5, NAD, Awake, Alert, Orientated HEENT: NCAT, EOMI, PERRL, OP dry Neck: supple, no adenopathy, no thyromegaly, no JVD CVS/Heart: regular bradycardia, normal S1S2, pulses present bilaterally Chest/Lungs: CTA B, Symmetrical chest expansion, good air entry bilaterally GI/Abdomen: soft, NT, diffuse tenderness, good bowel sounds, no guarding or rebound /Bladder: no suprapubic tenderness, no CVA or paraspinal tenderness Extermity/Skin: no c/c/e, no obvious rash MSK: FROM x 4 Neuro: CN 2-12 grossly intact, no new focal deficits Psych: anxious A/P -Hyperemesis gravidarium per General Surgeon, abd u/s did not show acute cholecystitis or appendicitis, I believe if we can control the n/v then the abd pains/bp will improve: add iv reglan to iv zofran, dry kiln operator helper recommended Mylicon which i ordered -Accelerated hypertension: use iv hydralazine 1st trimester only, no labetalol due to bradycardia -Hyperkalemia: on dextrose with potassium, will give additional 20mg iv kcl -9 week IUP with feeling for labor pains: dry kiln operator helper notified patient's Attending physician notified. CCT 32 minutes,
--- NOTE | 2018-05-12 08:37 | Progress Note ---
Assessment and Plan - Patient Problems (1) Acute abdominal pain Current Visit: Yes Status: Acute Plan to address problem: Possible Appendicitis IV Ceftriaxone initiated No surgical cause (2) Current Visit: Yes Status: Acute Qualifiers: Weeks of gestation: 9 weeks Qualified Code(s): Z3A.09 - 9 weeks gestation of Plan to address problem: [place] consult requested (3) Hyperemesis complicating , antepartum Onset Date: 05/11/18 Current Visit: Yes Status: Acute Plan to address problem: possible Hyperemesis IV Zofran prn (4) Hypokalemia Onset Date: 05/11/18 Current Visit: Yes Status: Acute Plan to address problem: Supplemented (5) DVT prophylaxis Current Visit: Yes Status: Acute Plan to address problem: on SCD's Subjective Date of service: 05/12/18 Principal diagnosis: Hyperemesis Interval history: Continues to have Abdominal pain Objective - Constitutional Vitals: Vital Signs - 12hr 05/11/18 05/11/18 05/11/18 20:40 22:00 23:56 Temperature 98.2 F Pulse Rate 48 L Respiratory 10 L 18 20 Rate Respiratory 18 Rate [Lower Abdomen] Blood Pressure 151/65 O2 Sat by Pulse 99 Oximetry 05/12/18 05/12/18 05/12/18 07:07 07:22 07:53 Temperature Pulse Rate 53 L Respiratory 18 18 Rate Respiratory Rate [Lower Abdomen] Blood Pressure 202/107 O2 Sat by Pulse Oximetry General appearance: Present: no acute distress, well-nourished - EENT Eyes: PERRL, EOM intact ENT: hearing intact, clear oral mucosa Ears: bilateral: normal - Neck Neck: supple, normal ROM - Respiratory Respiratory effort: normal Respiratory: bilateral: CTA - Breasts Breasts: normal - Cardiovascular Rhythm: regular Heart Sounds: Present: S1 & S2. Absent: gallop, rub Extremities: pulses intact, No edema, normal color, Full ROM - Gastrointestinal General gastrointestinal: Present: soft, non-tender, non-distended, normal bowel sounds - Genitourinary Female genitourinary: normal - Integumentary Integumentary: clear, warm, dry - Musculoskeletal Musculoskeletal: 1, strength equal bilaterally - Neurologic Neurologic: moves all extremities - Psychiatric Psychiatric: memory intact, appropriate mood/affect, intact judgment & insight - Labs CBC & Chem 7: 05/11/18 13:31 05/11/18 04:23 Labs: Abnormal lab results 05/11/18 Range/Units 13:31 MCH 27 L (28-32) pg RDW 15.3 H (13.2-15.2) %
[2018-05-12 08:42] LABS: BUN/Creatinine Ratio 13; Blood Urea Nitrogen 5 mg/dL (7-17); Calcium 9.3 mg/dL (8.4-10.2); Hemolysis Index 6
[2018-05-12] MEDS ORDERED: K-DUR PO ONE (09:00)
[2018-05-12] MEDS ORDERED: KCL 10MEQ/100ML 10 MEQ/100 ML BAG IV SCH (09:00)
--- NOTE | 2018-05-12 10:16 | Ultrasound Report ---
ULTRASOUND OB LESS THAN 14 WEEKS FETUS HISTORY: Abdominal pain. COMPARISON: 05/11/18. TECHNIQUE: Transabdominal and transvaginal ultrasound with color doppler interrogation. FINDINGS: Uterus: 10.5 x 7.2 x 3.3 cm. No evidence for uterine mass. Endometrium: An intrauterine is identified with heart rate measuring 180 beats per minute. [place]-rump length of 26 mm correlates with a 9 week 2 day . No subchorionic hemorrhage is identified. Right ovary: Normal. Left ovary: Normal. No pelvic fluid or mass is identified. Normal color doppler interrogation. IMPRESSION: Viable single intrauterine as described. No acute abnormality is detected.
--- NOTE | 2018-05-12 10:37 | Progress Note ---
Assessment and Plan - Patient Problems (1) 9 weeks gestation of Current Visit: Yes Status: Acute (2) Hyperemesis affecting , antepartum Current Visit: Yes Status: Acute Plan to address problem: Will continue IV fluids. Zofran and pepcid Q8 hrs. MOM QD. Keep NPO. Encourage ambulation. (3) Hypokalemia Onset Date: 05/11/18 Current Visit: Yes Status: Acute Plan to address problem: K+ replacement ordered. F/U CMP tonight. Subjective - Subjective Date of service: 05/12/18 Principal diagnosis: SIUP at 9 weeks with Hyperemesis Interval history: Patient is a 23 year old who was admitted for diffuse abdominal pain and vomiting yesterday. Pelvic sonogram showed an IUP at 9 weeks with +FH. She denies any vaginal bleeding. She was being managed by the hospitalist team and was worked up for appendicitis and gallbladder issues. Abdominal sono was negative for stones. Surgical consult was done and they did not think she had appendicitis. She recieved zofran and IV fluids. This AM, she reported severe diffuse abdominal cramping and heartburn. She said that she has not moved her bowel for 3 days. IV pepcid, zofran, mylicon were given. She had MOM last night. She was just transferred to our floor for continued management for hyperemesis. Objective - Vital Signs Latest vital signs: Vital Signs Temp Pulse Resp Resp BP BP Pulse Ox 05/12/18 07:53 53 L 202/107 05/12/18 07:22 18 05/12/18 07:07 18 05/11/18 23:56 98.2 F 48 L 20 151/65 99 05/11/18 22:00 18 18 05/11/18 20:40 10 L 05/11/18 19:55 98.4 F 46 L 20 172/58 100 05/11/18 17:15 20 05/11/18 16:31 22 05/11/18 15:35 60 100 05/11/18 15:00 97.8 F 68 18 167/96 05/11/18 13:21 46 L 100 05/11/18 13:20 97.8 F 50 L 18 99 Intake and Output 05/11/18 05/12/18 05/12/18 23:59 07:59 15:59 Intake Total 210 360 Output Total 2 150 Balance 208 210 Intake: IV 210 KCL 10MEQ/100ML 10 meq In 200 100 ml @ 100 mls/hr IV Q1H COUNTS INCLUDE 234 BEDS AT THE [facility] Rx#:[id number] Left Forearm 10 Oral 0 360 Output: Urine 2 Void 2 Emesis 150 Other: Total, Intake Amount 0 360 Total, Output Amount 2 150 Voiding Method Toilet # Voids Void 2 4 Weight 97.069 kg Patient Weight 05/12/18 23:59 Weight 97.069 kg - Exam Cardiovascular: Present: Normal S1, Normal S2 Lungs: Present: Clear to auscultation Vulva: both: normal Deep Tendon Reflex Grade: Normal +2 - Labs Labs: Abnormal lab results 05/11/18 05/12/18 Range/Units 13:31 08:14 MCH 27 L (28-32) pg RDW 15.3 H (13.2-15.2) % Potassium 2.9 L* (3.6-5.0) mmol/L Carbon Dioxide 20 L (22-30) mmol/L BUN 5 L (7-17) mg/dL Creatinine 0.4 L (0.7-1.2) mg/dL
[2018-05-12] MEDS: D5W/NS W/KCL 20MEQ 20 MEQ/1,000 ML BAG IV SCH (11:28)
[2018-05-12] MEDS: COLACE PO SCH (11:46)
--- NOTE | 2018-05-12 16:17 | Progress Note ---
Assessment and Plan - Patient Problems (1) Acute abdominal pain Current Visit: Yes Status: Acute Plan to address problem: IV Ceftriaxone initiated No surgical cause (2) Current Visit: Yes Status: Acute Qualifiers: Weeks of gestation: 9 weeks Qualified Code(s): Z3A.09 - 9 weeks gestation of Plan to address problem: [place] Measurer consult requested (3) Hyperemesis complicating , antepartum Onset Date: 05/11/18 Current Visit: Yes Status: Acute Plan to address problem: possible Hyperemesis IV Zofran prn (4) Hypokalemia Onset Date: 05/11/18 Current Visit: Yes Status: Acute Plan to address problem: Supplemented (5) DVT prophylaxis Current Visit: Yes Status: Acute Plan to address problem: on SCD's Subjective Date of service: 05/11/18 Principal diagnosis: SIUP at 9 weeks with Hyperemesis Interval history: Continues to have Abdominal pain Objective - Constitutional Vitals: Vital Signs - 12hr 05/12/18 05/12/18 05/12/18 07:07 07:22 07:53 Temperature Pulse Rate 53 L Pulse Rate [ Radial] Respiratory 18 18 Rate Blood Pressure 202/107 Blood Pressure [Left] O2 Sat by Pulse Oximetry 05/12/18 05/12/18 10:10 10:15 Temperature 98.3 F Pulse Rate 64 Pulse Rate [ 68 Radial] Respiratory 20 Rate Blood Pressure Blood Pressure 160/91 [Left] O2 Sat by Pulse 100 100 Oximetry General appearance: Present: no acute distress, well-nourished - EENT Eyes: PERRL, EOM intact ENT: hearing intact, clear oral mucosa Ears: bilateral: normal - Neck Neck: supple, normal ROM - Respiratory Respiratory effort: normal Respiratory: bilateral: CTA - Breasts Breasts: normal - Cardiovascular Heart rate: 78 Rhythm: regular Heart Sounds: Present: S1 & S2. Absent: gallop, rub Extremities: pulses intact, No edema, normal color, Full ROM - Gastrointestinal General gastrointestinal: Present: soft, non-tender, non-distended, normal bowel sounds - Genitourinary Female genitourinary: normal - Integumentary Integumentary: clear, warm, dry - Musculoskeletal Musculoskeletal: 1, strength equal bilaterally - Neurologic Neurologic: moves all extremities - Psychiatric Psychiatric: memory intact, appropriate mood/affect, intact judgment & insight - Labs CBC & Chem 7: 05/11/18 13:31 05/12/18 08:14 Labs: Abnormal lab results 05/12/18 Range/Units 08:14 Potassium 2.9 L* (3.6-5.0) mmol/L Carbon Dioxide 20 L (22-30) mmol/L BUN 5 L (7-17) mg/dL Creatinine 0.4 L (0.7-1.2) mg/dL
[2018-05-12 17:07] LABS: Alanine Aminotransferase 37 units/L (7-56); BUN/Creatinine Ratio 13; Blood Urea Nitrogen 4 mg/dL (7-17); Calcium 8.9 mg/dL (8.4-10.2); Hemolysis Index 9
[2018-05-12 20:45] LABS: BUN/Creatinine Ratio 10; Blood Urea Nitrogen 4 mg/dL (7-17); Calcium 9.4 mg/dL (8.4-10.2); Hemolysis Index 6
[2018-05-12] MEDS: ROCEPHIN/NS 2 GM/100 ML 2 GM/100 ML BAG IV SCH (22:47)
[2018-05-13] MEDS: COLACE PO SCH (06:12)
[2018-05-13] MEDS ORDERED: K-DUR PO NR ×2 (07:39→12:00)
--- NOTE | 2018-05-13 07:43 | Progress Note ---
Assessment and Plan - Patient Problems (1) Acute abdominal pain Current Visit: Yes Status: Acute Plan to address problem: IV Ceftriaxone Abd pain better (2) Current Visit: Yes Status: Acute Qualifiers: Weeks of gestation: 9 weeks Qualified Code(s): Z3A.09 - 9 weeks gestation of Plan to address problem: Audio Narrator consult requested (3) Hyperemesis complicating , antepartum Onset Date: 05/11/18 Current Visit: Yes Status: Acute Plan to address problem: possible Hyperemesis IV Zofran prn (4) Hypokalemia Onset Date: 05/11/18 Current Visit: Yes Status: Acute Plan to address problem: Supplemented K 3.2 (5) DVT prophylaxis Current Visit: Yes Status: Acute Plan to address problem: on SCD's Subjective Date of service: 05/13/18 Principal diagnosis: SIUP at 9 weeks with Hyperemesis Interval history: Abdominal pain better Objective - Constitutional Vitals: Vital Signs - 12hr 05/12/18 05/12/18 20:01 23:27 Pulse Rate 64 Respiratory 20 Rate Blood Pressure 200/93 General appearance: Present: no acute distress, well-nourished - EENT Eyes: PERRL, EOM intact ENT: hearing intact, clear oral mucosa Ears: bilateral: normal - Neck Neck: supple, normal ROM - Respiratory Respiratory effort: normal Respiratory: bilateral: CTA - Breasts Breasts: normal - Cardiovascular Heart rate: 78 Rhythm: regular Heart Sounds: Present: S1 & S2. Absent: gallop, rub Extremities: no ischemia, pulses intact, No edema, normal color, Full ROM - Gastrointestinal General gastrointestinal: Present: soft, non-tender, non-distended, normal bowel sounds - Genitourinary Female genitourinary: normal - Integumentary Integumentary: clear, warm, dry - Musculoskeletal Musculoskeletal: 1, strength equal bilaterally - Neurologic Neurologic: moves all extremities - Psychiatric Psychiatric: memory intact, appropriate mood/affect, intact judgment & insight - Allied health notes Allied health notes reviewed: nursing, case management - Labs CBC & Chem 7: 05/11/18 13:31 05/12/18 20:05 Labs: Abnormal lab results 05/12/18 05/12/18 05/12/18 Range/Units 08:14 16:31 20:05 Sodium 136 L 136 L (137-145) mmol/L Potassium 2.9 L* 3.3 L 3.2 L (3.6-5.0) mmol/L Carbon Dioxide 20 L 20 L 19 L (22-30) mmol/L BUN 5 L 4 L 4 L (7-17) mg/dL Creatinine 0.4 L 0.3 L 0.4 L (0.7-1.2) mg/dL
[2018-05-13] MEDS: REGLAN IV PRN (08:51)
[2018-05-13] MEDS: ZOFRAN IV PRN (08:51)
[2018-05-13] MEDS: MORPHINE IV PRN (08:51)
[2018-05-13] MEDS: D5W/NS W/KCL 20MEQ 20 MEQ/1,000 ML BAG IV SCH (09:36)
[2018-05-13 10:23] LABS: BUN/Creatinine Ratio 17; Blood Urea Nitrogen 5 mg/dL (7-17); Calcium 9.4 mg/dL (8.4-10.2); Hemolysis Index 26
--- NOTE | 2018-05-13 13:48 | Event Note ---
Date: 05/13/18 Patient seen and examined, stable and doing well. Denies abdominal pain denies nausea vomiting and eager to be discharged. Abdominal exam was benign A: IUP at ~ 9 wks Abd pain (resolved) P: -Patient is clear from GUN WELDER standpoint for discharge -She will follow up with her primary GUN WELDER at [facility] -Declined any medications for N/CV at this time as she claims she has meds at home
[2018-05-13] MEDS ORDERED: K-DUR PO ONE (16:00)
[2018-05-13 16:09] VITALS: BP 133/78
== END 2018-05-13 15:55 | disposition home or self-care (01) | DRG 832 ==
LOC: ED 16:14 → 3B-SURG 21:53 → OB 05-12 10:00
PROVIDERS: ADMIT Internal Medicine; ATTEND Internal Medicine
DX: O21.0 Mild hyperemesis gravidarum (principal); O16.1 Unspecified maternal hypertension, first trimester; Z3A.09 9 weeks gestation of pregnancy; O99.281 Endocrine, nutritional and metabolic diseases complicating pregnancy, first trimester; E87.5 Hyperkalemia; K59.00 Constipation, unspecified; O26.891 Other specified pregnancy related conditions, first trimester; D72.829 Elevated white blood cell count, unspecified; R82.4 Acetonuria
CPT/HCPCS: 36415; 76705; 76801; 76817; 80048; 80053; 81001; 82010; 82150; 82962; 83690; 84702; 85025; 85027; 93005; 93010; G0378; J0360; J0696; J1170; J1200; J2270; J2405; J2765; J3480; J7030; J7042

== ENCOUNTER 2019-05-10 23:33 | Emergency (ER) | payer SELFPAY ==
[2019-05-10 23:38] VITALS: BP 177/120
[2019-05-11 00:59] LABS: Basophils # (Auto) 0.1 K/mm3 (0.0-0.1); Basophils % (Auto) 0.6 % (0.0-1.8); Eosinophils # (Auto) 0.1 K/mm3 (0.0-0.4); Eosinophils % (Auto) 1.6 % (0.0-4.3); Hematocrit 40.4 % (30.3-42.9); Hemoglobin 13.1 gm/dl (10.1-14.3); Lymphocytes # (Auto) 1.9 K/mm3 (1.2-5.4); Lymphocytes % (Auto) 21.4 % (13.4-35.0); Mean Corpuscular HGB Conc 33 % (30-34); Mean Corpuscular Volume 83 fl (79-97); Monocytes # (Auto) 0.7 K/mm3 (0.0-0.8); Monocytes % (Auto) 7.6 % (0.0-7.3); Platelet Count 311 K/mm3 (140-440); Red Blood Count 4.89 M/mm3 (3.65-5.03); Red Cell Distribution Width 16.2 % (13.2-15.2)
[2019-05-11 01:07] LABS: Alanine Aminotransferase 12 units/L (7-56); Albumin 4.7 g/dL (3.9-5); BUN/Creatinine Ratio 17; Blood Urea Nitrogen 10 mg/dL (7-17); Calcium 9.8 mg/dL (8.4-10.2); Hemolysis Index 2
[2019-05-11] MEDS ORDERED: ONDANSETRON 4 MG/2 ML INJ ONE (02:02)
[2019-05-11] MEDS ORDERED: ONDANSETRON 4 MG/2 ML INJ IV ONE (02:03)
[2019-05-11] MEDS ORDERED: SODIUM CHLORIDE 0.9% 1000 ML 1,000 ML IV ONE ×2 (02:03→03:19)
[2019-05-11] MEDS ORDERED: SODIUM CHLORIDE 0.9% 1000 ML 1,000 ML ONE (02:06)
[2019-05-11] MEDS ORDERED: DICYCLOMINE 20 MG TAB PO ONE (02:31)
--- NOTE | 2019-05-11 02:31 | Emergency Department Report ---
ED Abdominal Pain HPI - General Chief Complaint: Abdominal Pain Stated Complaint: VOMITING AND DIARRHEA Time Seen by Provider: 05/11/19 02:02 Source: patient Mode of arrival: Ambulatory Limitations: No Limitations - History of Present Illness Initial Comments: 24-year-old -[place] female presents to the emergency room complaining of abdominal pain with nausea vomiting diarrhea 3 days. Patient has no past medical history besides preeclampsia currently takes no medications on a daily basis and has no known drug allergies. Patient denies eating any concerning food for food poisoning. Patient denies any smoking of THC. MD Complaint: abdominal pain Onset/Timin -: days(s) Location: diffuse Radiation: none Severity: severe Severity scale (0 -10): 8 Quality: cramping, sharp Consistency: constant Improves With: nothing Worsens With: nothing Associated Symptoms: nausea, vomiting, diarrhea - Related Data Previous Rx's Medication Instructions Recorded Last Taken Type Ondansetron [Zofran Odt] 4 mg PO Q8HR PRN #12 tab.rapdis 05/11/19 Unknown Rx Allergies Allergy/AdvReac Type Severity Reaction Status Date / Time shellfish derived Allergy Unknown Verified 05/16/18 22:33 ED Review of Systems ROS: Stated complaint: VOMITING AND DIARRHEA Other details as noted in HPI Comment: All other systems reviewed and negative ED Past Medical Hx - Past Medical History Previous Medical History?: Yes Hx Congestive Heart Failure: No Hx Diabetes: No Hx Asthma: No Hx COPD: No Hx HIV: Yes (Preeclampsia) - Surgical History Past Surgical History?: Yes Additional Surgical History: - Social History Smoking Status: Current Every Day Smoker Substance Use Type: Alcohol - Medications Home Medications: Home Medications Medication Instructions Recorded Confirmed Last Taken Type Ondansetron [Zofran Odt] 4 mg PO Q8HR PRN #12 tab.rapdis 05/11/19 Unknown Rx ED Physical Exam - General Limitations: No Limitations General appearance: alert, in no apparent distress - Head Head exam: Present: atraumatic, normocephalic - Eye Eye exam: Present: normal appearance - ENT ENT exam: Present: mucous membranes moist - Neck Neck exam: Present: normal inspection - Respiratory Respiratory exam: Present: normal lung sounds bilaterally. Absent: respiratory distress - Cardiovascular Cardiovascular Exam: Present: regular rate, normal rhythm. Absent: systolic murmur, diastolic murmur, rubs, gallop - GI/Abdominal GI/Abdominal exam: Present: soft, tenderness, normal bowel sounds. Absent: distended, guarding, rebound, rigid - Back Exam Back exam: Present: normal inspection - Neurological Exam Neurological exam: Present: alert, oriented X3 - Psychiatric Psychiatric exam: Present: normal affect, normal mood - Skin Skin exam: Present: warm, dry, intact, normal color. Absent: rash ED Course Vital Signs 05/10/19 23:37 Temperature 98.4 F Pulse Rate 69 Respiratory 18 Rate Blood Pressure 177/120 O2 Sat by Pulse 99 Oximetry ED Medical Decision Making - Lab Data Result diagrams: 05/11/19 00:13 05/11/19 00:13 Critical care attestation.: If time is entered above; I have spent that time in minutes in the direct care of this critically ill patient, excluding procedure time. ED Disposition Clinical Impression: Cannabis hyperemesis syndrome concurrent with and due to cannabis abuse Disposition: DC-01 TO HOME OR SELFCARE Is pt being admited?: No Does the pt Need Aspirin: No Condition: Stable Instructions: Abdominal Pain (ED), Cannabis Abuse (ED) Prescriptions: Ondansetron [Zofran Odt] 4 mg PO Q8HR PRN #12 tab.rapdis PRN Reason: Nausea Referrals: PRIMARY CARE, [Primary Care Provider] - 3-5 Days [facility] [Outside] - 3-5 Days
[2019-05-11 02:45] LABS: Amphetamine Screen,Urine PRESUMPTIVE NEGATIVE; Benzodiazepines Screen,Urine PRESUMPTIVE NEGATIVE; Cocaine Screen,Urine PRESUMPTIVE NEGATIVE; Methadone Screen,Urine PRESUMPTIVE NEGATIVE; Opiate Screen,Urine PRESUMPTIVE NEGATIVE
[2019-05-11] MEDS ORDERED: DICYCLOMINE 20 MG/2 ML INJ IM ONE (02:45)
[2019-05-11 03:03] LABS: Cannabinoid Screen,Urine PRESUMPTIVE POSITIVE
[2019-05-11 03:06] LABS: Bacteria,Urine 1+ /HPF (Negative); Bilirubin,Urine NEG (Negative); Blood,Urine NEG (Negative); Color,Urine Yellow (Yellow); Mucus,Urine 3+ /HPF; Urobilinogen,Urine < 2.0 mg/dL (<2.0)
== END 2019-05-11 04:19 | disposition home or self-care (01) ==
LOC: ED 23:33
DX: F12.188 Cannabis abuse with other cannabis-induced disorder (principal); F17.200 Nicotine dependence, unspecified, uncomplicated; R11.2 Nausea with vomiting, unspecified; Z98.890 Other specified postprocedural states; Z21 Asymptomatic human immunodeficiency virus [HIV] infection status; Z79.899 Other long term (current) drug therapy; Z91.013 Allergy to seafood
CPT/HCPCS: 36415; 80053; 80307; 81001; 83690; 84703; 85025; 96361; 96372; 96374; 99283; J2405; J7030

== ENCOUNTER 2021-03-19 11:38 | Emergency (ER) | payer SELFPAY ==
[2021-03-19] MEDS ORDERED: FAMOTIDINE 20 MG/2 ML INJ IV ONE (11:50)
[2021-03-19] MEDS ORDERED: MORPHINE 4 MG/1 ML INJ IV ONE (11:50)
[2021-03-19] MEDS ORDERED: METOCLOPRAMIDE 10 MG/2 ML INJ IV ONE (11:50)
--- NOTE | 2021-03-19 11:52 | Emergency Department Report ---
HPI - General Chief Complaint: Abdominal Pain Time Seen by Provider: 03/19/21 11:49 - HPI HPI: This is a 25-year-old -H[place]ian female presents to the emergency department via EMS from home with complaint of a 3-day history of upper abdominal pain, nausea and vomiting. The patient was seen at a [facility] facility when this first began 3 days ago and appears to have been given a diagnosis of gastritis. At that time she had a GI cocktail that helped with the symptoms but she says the symptoms began coming back even before discharge. The patient received 4 mg of Zofran in route. Currently she says the pain is 9 out of 10 in intensity. No known aggravating or alleviating factors. Patient was also found to have extremely elevated blood pressure but denies any history of hypertension. No recent travel or sick contacts at home. ED Past Medical Hx - Past Medical History Previous Medical History?: Yes Hx Congestive Heart Failure: No Hx Diabetes: No Hx Asthma: No Hx COPD: No Hx HIV: Yes (Preeclampsia) - Surgical History Past Surgical History?: Yes Additional Surgical History: - Social History Smoking Status: Current Every Day Smoker Substance Use Type: Alcohol - Medications Home Medications: Home Medications Medication Instructions Recorded Confirmed Last Taken Type Dicyclomine [Bentyl] 10 mg PO QID PRN #20 capsule 03/19/21 Unknown Rx Famotidine [Pepcid] 20 mg PO BID #20 tablet 03/19/21 Unknown Rx Ondansetron [Zofran ODT TAB] 4 mg PO Q8HR PRN #12 tab.rapdis 03/19/21 Unknown Rx amLODIPine 5 mg PO DAILY #30 tab 03/19/21 Unknown Rx ED Review of Systems ROS: Stated complaint: ABD PAIN Other details as noted in HPI Comment: All other systems reviewed and negative Constitutional: denies: chills, fever Eyes: denies: eye pain, vision change ENT: denies: ear pain, throat pain Respiratory: denies: cough, shortness of breath Cardiovascular: denies: chest pain, palpitations Gastrointestinal: abdominal pain, nausea, vomiting Genitourinary: denies: dysuria, discharge Musculoskeletal: denies: back pain, arthralgia Skin: denies: rash, lesions Neurological: denies: headache, weakness Physical Exam - Physical Exam Vital Signs: Vital Signs 03/19/21 11:45 Temperature 98.2 F Pulse Rate 58 L Respiratory 16 Rate Blood Pressure 200/116 [Left] O2 Sat by Pulse 100 Oximetry Physical Exam: GENERAL: The patient is well-developed well-nourished. HENT: Normocephalic. Atraumatic. Patient has moist mucous membranes. EYES: Extraocular motions are intact. NECK: Supple. Trachea is midline. CHEST/LUNGS: Clear to auscultation. There is no respiratory distress noted. HEART/CARDIOVASCULAR: Regular. There is no tachycardia. There is no murmur. ABDOMEN: Abdomen is soft. There is some upper abdominal tenderness to palpation. No guarding., nontender. Patient has normal bowel sounds. SKIN: Skin is warm and dry. NEURO: The patient is awake, alert, and oriented. The patient is cooperative. The patient has no focal neurologic deficits. Normal speech. MUSCULOSKELETAL: There is no tenderness or deformity. There is no limitation range of motion. ED Course Vital Signs 03/19/21 11:45 Temperature 98.2 F Pulse Rate 58 L Respiratory 16 Rate Blood Pressure 200/116 [Left] O2 Sat by Pulse 100 Oximetry ED Medical Decision Making - Lab Data Result diagrams: 03/19/21 11:57 03/19/21 11:57 Lab Results 03/19/21 03/19/21 03/19/21 Range/Units 11:57 11:57 11:57 WBC 10.6 (4.5-11.0) K/mm3 RBC 5.18 H (3.65-5.03) M/mm3 Hgb 13.0 (10.1-14.3) gm/dl Hct 41.2 (30.3-42.9) % MCV 80 (79-97) fl MCH 25 L (28-32) pg MCHC 32 (30-34) % RDW 15.5 H (13.2-15.2) % Plt Count 316 (140-440) K/mm3 Lymph % (Auto) 12.7 L (13.4-35.0) % Taliaferro % (Auto) 5.5 (0.0-7.3) % Eos % (Auto) 0.4 (0.0-4.3) % Baso % (Auto) 0.4 (0.0-1.8) % Lymph # (Auto) 1.4 (1.2-5.4) K/mm3 Taliaferro # (Auto) 0.6 (0.0-0.8) K/mm3 Eos # (Auto) 0.0 (0.0-0.4) K/mm3 Baso # (Auto) 0.0 (0.0-0.1) K/mm3 Seg Neutrophils % 81.0 H (40.0-70.0) % Seg Neutrophils # 8.6 H (1.8-7.7) K/mm3 Sodium 133 L (137-145) mmol/L Potassium 3.4 L (3.6-5.0) mmol/L Chloride 95.1 L (98-107) mmol/L Carbon Dioxide 22 (22-30) mmol/L Anion Gap 19 mmol/L BUN 15 (7-17) mg/dL Creatinine 0.7 (0.6-1.2) mg/dL Estimated GFR > 60 ml/min BUN/Creatinine Ratio 21 % Glucose 109 H (65-100) mg/dL Calcium 9.6 (8.4-10.2) mg/dL Total Bilirubin 0.40 (0.1-1.2) mg/dL Direct Bilirubin < 0.2 (0-0.2) mg/dL Indirect Bilirubin 0.2 mg/dL AST 14 (5-40) units/L ALT 15 (7-56) units/L Alkaline Phosphatase 83 (35-129) units/L Total Protein 8.8 H (6.3-8.2) g/dL Albumin 4.7 (3.9-5) g/dL Albumin/Globulin Ratio 1.1 % Lipase 15 (13-60) units/L HCG, Qual Negative (Negative) Urine Color (Yellow) Urine Turbidity (Clear) Urine pH (5.0-7.0) Ur Specific Gilchrist (1.003-1.030) Urine Protein (Negative) mg/dL Urine Glucose (UA) (Negative) mg/dL Urine Ketones (Negative) mg/dL Urine Blood (Negative) Urine Nitrite (Negative) Urine Bilirubin (Negative) Urine Urobilinogen (<2.0) mg/dL Ur Leukocyte Esterase (Negative) Urine WBC (Auto) (0.0-6.0) /HPF Urine RBC (Auto) (0.0-6.0) /HPF U Epithel Cells (Auto) (0-13.0) /HPF Urine Bacteria (Auto) (Negative) /HPF Urine Mucus /HPF Ur Yeast w Hyphae /HPF 03/19/21 Range/Units 13:11 WBC (4.5-11.0) K/mm3 RBC (3.65-5.03) M/mm3 Hgb (10.1-14.3) gm/dl Hct (30.3-42.9) % MCV (79-97) fl MCH (28-32) pg MCHC (30-34) % RDW (13.2-15.2) % Plt Count (140-440) K/mm3 Lymph % (Auto) (13.4-35.0) % Taliaferro % (Auto) (0.0-7.3) % Eos % (Auto) (0.0-4.3) % Baso % (Auto) (0.0-1.8) % Lymph # (Auto) (1.2-5.4) K/mm3 Taliaferro # (Auto) (0.0-0.8) K/mm3 Eos # (Auto) (0.0-0.4) K/mm3 Baso # (Auto) (0.0-0.1) K/mm3 Seg Neutrophils % (40.0-70.0) % Seg Neutrophils # (1.8-7.7) K/mm3 Sodium (137-145) mmol/L Potassium (3.6-5.0) mmol/L Chloride (98-107) mmol/L Carbon Dioxide (22-30) mmol/L Anion Gap mmol/L BUN (7-17) mg/dL Creatinine (0.6-1.2) mg/dL Estimated GFR ml/min BUN/Creatinine Ratio % Glucose (65-100) mg/dL Calcium (8.4-10.2) mg/dL Total Bilirubin (0.1-1.2) mg/dL Direct Bilirubin (0-0.2) mg/dL Indirect Bilirubin mg/dL AST (5-40) units/L ALT (7-56) units/L Alkaline Phosphatase (35-129) units/L Total Protein (6.3-8.2) g/dL Albumin (3.9-5) g/dL Albumin/Globulin Ratio % Lipase (13-60) units/L HCG, Qual (Negative) Urine Color Yellow (Yellow) Urine Turbidity Slightly-cloudy (Clear) Urine pH 6.0 (5.0-7.0) Ur Specific Gilchrist 1.024 (1.003-1.030) Urine Protein 100 mg/dl (Negative) mg/dL Urine Glucose (UA) Neg (Negative) mg/dL Urine Ketones 20 (Negative) mg/dL Urine Blood Neg (Negative) Urine Nitrite Neg (Negative) Urine Bilirubin Neg (Negative) Urine Urobilinogen < 2.0 (<2.0) mg/dL Ur Leukocyte Esterase Neg (Negative) Urine WBC (Auto) 4.0 (0.0-6.0) /HPF Urine RBC (Auto) 7.0 (0.0-6.0) /HPF U Epithel Cells (Auto) 29.0 H (0-13.0) /HPF Urine Bacteria (Auto) 1+ (Negative) /HPF Urine Mucus 3+ /HPF Ur Yeast w Hyphae Few /HPF - Radiology Data Radiology results: report reviewed, image reviewed interpreted by me: Chest x-ray does not show any acute process. There are no pleural effusions, obvious pneumonia and there is no pneumothorax. No widened mediastinum. Abdominal x-ray shows nonspecific nonobstructive bowel gas. No free air. CT ABDOMEN AND PELVIS WITH CONTRAST INDICATION: Abd pain 100 ML OMNI 300. TECHNIQUE: Axial CT images were obtained through the abdomen and pelvis after 100 cc IV contrast. All CT scans at this location are performed using CT dose reduction for ALARA by means of automated ex posure control. COMPARISON: None available. FINDINGS: LOWER CHEST: No significant abnormality. LIVER: No significant abnormality. GALLBLADDER: No significant abnormality. BILE DUCTS: No significant abnormality. PANCREAS: No significant abnormality. SPLEEN: No significant abnormality. ADRENALS: No significant abnormality. RIGHT KIDNEY and URETER: No significant abnormality. LEFT KIDNEY and URETER: No significant abn ormality. STOMACH and SMALL BOWEL: No significant abnormality. COLON: No significant abnormality. APPENDIX: Normal. PERITONEUM: No free fluid. No free air. No fluid collection. LYMPH NODES: No significant adenopathy. AORTA and ARTERIES: No significant abnormality. IVC and VEINS: No significant abnormality. URINARY BLADDER: No significant abnormality. REPRODUCTIVE ORGANS: No significant abnormality. ADDITIONAL FINDINGS: None. SKELETAL SYSTEM: No significant abnormality. IMPRESSION: 1. No significant abnormality. - Medical Decision Making This patient presents to the emergency department with abdominal pain, nausea and vomiting. Also, while the patient does not have a history of hypertension, she does present with a very elevated blood pressure. On examination there is some abdominal tenderness to palpation but no guarding. Patient's labs have bee n mostly unremarkable including CBC, metabolic panel, lipase, urinalysis, and the patient is not . CT of the abdomen and pelvis with IV contrast does not show any acute process in the abdomen or pelvis or any etiology of the patient's discomfort. The patient was given antiemetics, analgesia, and antihypertensive medication. She was reevaluated multiple times over multiple hours and appears improved. She was able to pass an oral challenge. For these reasons the patient will be discharged home with outpatient follow-up with primary care and gastroenterology. The patient has been given a prescription for Bentyl, Zofran, amlodipine and Pepcid. Patient be noted that the patient's blood pressure was down to 159/83 when the patient was discharged from this emergency department. Critical Care Time: No Critical care attestation.: If time is entered above; I have spent that time in minutes in the direct care of this critically ill patient, excluding procedure time. ED Disposition Clinical Impression: Abdominal pain Qualifiers: Abdominal location: unspecified location Qualified Code(s): R10.9 - Unspecified abdominal pain Nausea & vomiting Qualifiers: Vomiting type: unspecified Vomiting Intractability: non-intractable Qualified Code(s): R11.2 - Nausea with vomiting, unspecified Hypertension Qualifiers: Hypertension type: primary hypertension Qualified Code(s): I10 - Essential (primary) hypertension Disposition: 01 HOME / SELF CARE / HOMELESS Is pt being admited?: No Condition: Stable Instructions: Abdominal Pain, Adult, Nausea and Vomiting, Adult, Hypertension, Adult, Abdominal Pain (ED), Hypertension (ED) Additional Instructions: Please follow-up with a primary care physician in the next few days. I have given you a referral for a local primary care physician, Dr. Cuello, and a primary care clinic, [facility]. I am giving you a referral for [place] [facility] to follow-up regarding your abdominal pain, nausea and vomiting. I am starting you on a blood pressure medication called Norvasc/amlodipine. This medication is taken once per day, usually in the morning. Try to stay away from foods that are high in salt and caffeinated products. Keep a blood pressure log. Return to the emergency department with any worsening of your symptoms, new or concerning symptoms not addressed during this current emergency department visit, or with any acute distress. Prescriptions: amLODIPine 5 mg PO DAILY #30 tab Dicyclomine [Bentyl] 10 mg PO QID PRN #20 capsule PRN Reason: Pain , Severe (7-10) Famotidine [Pepcid] 20 mg PO BID #20 tablet Ondansetron [Zofran ODT TAB] 4 mg PO Q8HR PRN #12 tab.rapdis PRN Reason: Nausea Referrals: PRIMARY CAREMD [Primary Care Provider] - 3-5 Days MEKA CUELLO MD [Staff Physician] - 3-5 Days [facility] [Provider Group] - 3-5 Days [facility] [Provider Group] - 3-5 Days Time of Disposition: 14:47
[2021-03-19 12:11] LABS: Basophils % (Auto) 0.4 % (0.0-1.8); Eosinophils % (Auto) 0.4 % (0.0-4.3); Hematocrit 41.2 % (30.3-42.9); Lymphocytes # (Auto) 1.4 K/mm3 (1.2-5.4); Lymphocytes % (Auto) 12.7 % (13.4-35.0); Mean Corpuscular HGB Conc 32 % (30-34); Mean Corpuscular Volume 80 fl (79-97); Monocytes # (Auto) 0.6 K/mm3 (0.0-0.8); Monocytes % (Auto) 5.5 % (0.0-7.3); Platelet Count 316 K/mm3 (140-440); Red Blood Count 5.18 M/mm3 (3.65-5.03); Red Cell Distribution Width 15.5 % (13.2-15.2)
[2021-03-19] MEDS ORDERED: hydrALAZINE 20 MG/1 ML INJ IV ONE (12:36)
--- NOTE | 2021-03-19 13:15 | XRay Report ---
CHEST AND ABDOMINAL SERIES HISTORY: Abdominal pain times multiple days. Chest one view: Heart size is normal. The lungs are clear. Two-view abdomen: Gas is scattered throughout the abdomen in a nonobstructive fashion. No free air or suspicious calcification. Signer Name: Noe Higgins MD Signed: 03/19/2021 1:10 PM Workstation Name: [email or web address]
[2021-03-19 13:20] LABS: Alanine Aminotransferase 15 units/L (7-56); Albumin 4.7 g/dL (3.9-5); Blood Urea Nitrogen 15 mg/dL (7-17); Calcium 9.6 mg/dL (8.4-10.2); Hemolysis Index 6
[2021-03-19 13:24] LABS: BUN/Creatinine Ratio 21; Bilirubin,Direct < 0.2 mg/dL (0-0.2)
[2021-03-19 14:01] LABS: Bacteria,Urine 1+ /HPF (Negative); Bilirubin,Urine NEG (Negative); Blood,Urine NEG (Negative); Color,Urine Yellow (Yellow); Mucus,Urine 3+ /HPF; Urobilinogen,Urine < 2.0 mg/dL (<2.0)
--- NOTE | 2021-03-19 14:36 | Cat Scan Report ---
CT ABDOMEN AND PELVIS WITH CONTRAST INDICATION: Abd pain 100 ML OMNI 300. TECHNIQUE: Axial CT images were obtained through the abdomen and pelvis after 100 cc IV contrast. All CT scans at this location are performed using CT dose reduction for ALARA by means of automated exposure contr ol. COMPARISON: None available. FINDINGS: LOWER CHEST: No significant abnormality. LIVER: No significant abnormality. GALLBLADDER: No significant abnormality. BILE DUCTS: No significant abnormality. PANCREAS: No significant abnormality. SPLEEN: No significant abnormality. ADRENALS: No significant abnormality. RIGHT KIDNEY and URETER: No significant abnormality. LEFT KIDNEY and URETER: No significant abnormality. STOMACH and SMALL BOWEL: No significant abnormality. COLON: No significant abnormality. APPENDIX: Normal. PERITONEUM: No free fluid. No free air. No fluid collection. LYMPH NODES: No significant adenopathy. AORTA and ARTERIES: No significant abnormality. IVC and VEINS: No significant abnormality. URINARY BLADDER: No significant abnormality. REPRODUCTIVE ORGANS: No significant abnormality. ADDITIONAL FINDINGS: None. SKELETAL SYSTEM: No significant abnormality. IMPRESSION: 1. No significant abnormality. Signer Name: Samm Starr MD Signed: 03/19/2021 2:31 PM Workstation Name: [id number]
[2021-03-19 14:53] VITALS: BP 200/103
== END 2021-03-19 15:14 | disposition home or self-care (01) ==
LOC: ED 11:38
DX: R11.2 Nausea with vomiting, unspecified (principal); R10.13 Epigastric pain; I10 Essential (primary) hypertension; F17.210 Nicotine dependence, cigarettes, uncomplicated; Z98.890 Other specified postprocedural states
CPT/HCPCS: 36415; 74022; 74177; 80048; 80076; 81001; 83690; 84703; 85025; 96374; 96375; 99284; J0360; J2270; J2765; Q9967

== ENCOUNTER 2021-06-24 15:12 | Emergency (ER) | payer OTHER ==
[2021-06-24] MEDS ORDERED: ONDANSETRON 4 MG ODT TAB PO ONE (17:02)
[2021-06-24] MEDS ORDERED: DICYCLOMINE 10 MG/5 ML ORAL LIQD PO ONE (17:03)
[2021-06-24] MEDS ORDERED: ALUM-MAG HYDROXIDE-SIMETHICONE 200-200-20MG/5ML ORAL LIQD 30 ML PO ONE (17:05)
[2021-06-24] MEDS ORDERED: LIDOCAINE VISCOUS 2% 15 ML ORAL LIQD PO ONE (17:05)
[2021-06-24] MEDS ORDERED: KETOROLAC 10 MG TAB PO ONE (17:06)
[2021-06-24] MEDS ORDERED: ONDANSETRON 4 MG/2 ML INJ IM ONE (17:33)
[2021-06-24] MEDS ORDERED: FAMOTIDINE 20 MG/2 ML INJ IV ONE ×2 (17:33→17:48)
[2021-06-24] MEDS ORDERED: ONDANSETRON 4 MG/2 ML INJ IV ONE (17:47)
[2021-06-24] MEDS ORDERED: MORPHINE 4 MG/1 ML INJ IV ONE (17:48)
[2021-06-24 18:23] LABS: Bilirubin,Urine Negative (Negative); Blood,Urine Trace (Negative); Color,Urine Yellow (Yellow); Urobilinogen,Urine < 2.0 mg/dL (<2.0)
[2021-06-24 18:24] LABS: HCG Qualitative,Urine Negative (Negative); RBC,Urine < 1.0 /HPF (0.0-6.0); WBC,Urine < 1.0 /HPF (0.0-6.0)
[2021-06-24] MEDS ORDERED: KETOROLAC 30 MG/1 ML INJ IV ONE (18:38)
[2021-06-24 19:14] LABS: Mean Corpuscular HGB Conc 30 % (30-34); Mean Corpuscular Volume 79 fl (79-97); Platelet Count 340 K/mm3 (140-440); Red Blood Count 5.02 M/mm3 (3.65-5.03); Red Cell Distribution Width 16.9 % (13.2-15.2)
[2021-06-24 19:17] LABS: Hematocrit 39.8 % (30.3-42.9)
[2021-06-24] MEDS ORDERED: METOCLOPRAMIDE 10 MG/2 ML INJ IV ONE (19:21)
[2021-06-24] MEDS ORDERED: diphenhydrAMINE 50 MG/ML VIAL IV ONE (19:21)
[2021-06-24 19:41] LABS: Alanine Aminotransferase 12 units/L (7-56); Albumin 4.9 g/dL (3.9-5); Blood Urea Nitrogen 10 mg/dL (7-17); Calcium 9.4 mg/dL (8.4-10.2); Hemolysis Index 0
[2021-06-24 19:43] LABS: BUN/Creatinine Ratio 17
[2021-06-24] MEDS ORDERED: POTASSIUM CHLORIDE ER 20 MEQ TAB PO ONE (20:04)
--- NOTE | 2021-06-24 20:11 | Emergency Department Report ---
ED Abdominal Pain HPI - General Chief Complaint: Abdominal Pain Stated Complaint: VOMITING/ABDOMINAL PAIN Time Seen by Provider: 06/24/21 17:00 Source: patient Mode of arrival: Ambulatory Limitations: No Limitations - History of Present Illness Initial Comments: 26-year-old black female with no past medical history presents to the emergency department for evaluation of 4-day history of nausea vomiting and abdominal cramping. She states that she vomits an average of 4-5 times per day and pain is now in the epigastric area. She describes epigastric pain as a gnawing burning feeling. She denies fever vaginal discharge dysuria and back pain. She states that whenever she attempts to eat that she vomits it back up. MD Complaint: abdominal pain -: Sudden, days(s) (4) Location: diffuse, epigastric Radiation: none Severity: severe Severity scale (0 -10): 10 Quality: cramping Consistency: intermittent Associated Symptoms: nausea, vomiting, diarrhea. denies: fever, constipation, dysuria, hematemesis, hematochezia, melena, hematuria, anorexia, syncope - Related Data LMP Date: 06/24/21 Previous Rx's Medication Instructions Recorded Last Taken Type Dicyclomine [Bentyl] 10 mg PO QID PRN #20 capsule 03/19/21 Unknown Rx Famotidine [Pepcid] 20 mg PO BID #20 tablet 03/19/21 Unknown Rx Ondansetron [Zofran ODT TAB] 4 mg PO Q8HR PRN #12 tab.rapdis 03/19/21 Unknown Rx amLODIPine 5 mg PO DAILY #30 tab 03/19/21 Unknown Rx Dicyclomine [Bentyl] 20 mg PO QID PRN #21 tablet 06/24/21 Unknown Rx Ondansetron [Zofran Odt] 4 mg PO Q8HR PRN #12 tab.rapdis 06/24/21 Unknown Rx Allergies Allergy/AdvReac Type Severity Reaction Status Date / Time shellfish derived Allergy Unknown Verified 05/16/18 22:33 ED Review of Systems ROS: Stated complaint: VOMITING/ABDOMINAL PAIN Other details as noted in HPI Comment: All other systems reviewed and negative Constitutional: no symptoms reported Respiratory: no symptoms reported. denies: cough, shortness of breath, SOB with exertion, SOB at rest Cardiovascular: denies: chest pain, palpitations, dyspnea on exertion, edema, syncope, paroxysmal nocturnal dyspnea Endocrine: no symptoms reported Gastrointestinal: abdominal pain, nausea, vomiting, diarrhea. denies: hematemesis, melena, hematochezia Genitourinary: denies: urgency, frequency, hematuria, discharge, abnormal menses Skin: denies: rash Neurological: denies: headache, weakness, numbness, paresthesias, abnormal gait ED Past Medical Hx - Past Medical History Previous Medical History?: Yes Hx Congestive Heart Failure: No Hx Diabetes: No Hx Asthma: No Hx COPD: No Hx HIV: Yes (Preeclampsia) - Surgical History Past Surgical History?: Yes Additional Surgical History: - Social History Smoking Status: Current Every Day Smoker Substance Use Type: Alcohol - Medications Home Medications: Home Medications Medication Instructions Recorded Confirmed Last Taken Type Dicyclomine [Bentyl] 10 mg PO QID PRN #20 capsule 03/19/21 Unknown Rx Famotidine [Pepcid] 20 mg PO BID #20 tablet 03/19/21 Unknown Rx Ondansetron [Zofran ODT TAB] 4 mg PO Q8HR PRN #12 tab.rapdis 03/19/21 Unknown Rx amLODIPine 5 mg PO DAILY #30 tab 03/19/21 Unknown Rx Dicyclomine [Bentyl] 20 mg PO QID PRN #21 tablet 06/24/21 Unknown Rx Ondansetron [Zofran Odt] 4 mg PO Q8HR PRN #12 tab.rapdis 06/24/21 Unknown Rx ED Physical Exam - General General appearance: alert, in no apparent distress - Head Head exam: Present: atraumatic, normocephalic - Eye Eye exam: Present: normal appearance. Absent: conjunctival injection - Neck Neck exam: Present: normal inspection - Respiratory Respiratory exam: Present: normal lung sounds bilaterally. Absent: respiratory distress, chest wall tenderness, accessory muscle use - Cardiovascular Cardiovascular Exam: Present: regular rate, normal heart sounds - GI/Abdominal GI/Abdominal exam: Present: soft, tenderness (Epigastric area). Absent: distended - Extremities Exam Extremities exam: Present: normal inspection - Back Exam Back exam: Present: normal inspection, full ROM. Absent: tenderness, CVA tenderness (R), CVA tenderness (L) - Neurological Exam Neurological exam: Present: alert, oriented X3 - Psychiatric Psychiatric exam: Present: normal affect, normal mood - Skin Skin exam: Present: warm, dry, intact ED Course Vital Signs 06/24/21 06/24/21 16:21 21:35 Temperature 98.1 F 98.0 F Pulse Rate 62 77 Respiratory 16 18 Rate Blood Pressure 218/100 125/78 [Left] O2 Sat by Pulse 100 99 Oximetry - Reevaluation(s) Reevaluation #1: N/v mostly resolved and pain improved. 06/24/21 20:26 ED Medical Decision Making - Lab Data Result diagrams: 06/24/21 18:44 06/24/21 18:44 - Medical Decision Making 26-year-old black female with no past medical history presents to the emergency department for evaluation of 4-day history of nausea vomiting and abdominal cramping. She states that she vomits an average of 4-5 times per day and pain is now in the epigastric area. She describes epigastric pain as a gnawing burning feeling. She denies fever vaginal discharge dysuria and back pain. She states that whenever she attempts to eat that she vomits it back up. Symptoms improved after medications. Patient felt slightly better. Found to have slightly low potassium, and she was given 1 p.o. potassium. No other gross abnormalities on labs. Patient will be treated for viral gastroenteritis symptoms, and sent home with Lily and Tamia to treat symptoms. She was advised to follow-up with her primary care provider or return to the emergency department if worsening symptoms or no improvement. She verbalized understanding of and agreement with plan of care. Critical Care Time: No Critical care attestation.: If time is entered above; I have spent that time in minutes in the direct care of this critically ill patient, excluding procedure time. ED Disposition Clinical Impression: Abdominal cramping, Nausea vomiting and diarrhea Disposition: HOME / SELF CARE / HOMELESS Is pt being admited?: No Does the pt Need Aspirin: No Condition: Stable Instructions: Food Choices to Help Relieve Diarrhea, Adult, Nausea and Vomiting, Adult, [id number], Abdominal Pain, Adult, [id number], Diarrhea, Adult, [id number], Abdominal Pain (ED) Additional Instructions: Take medications as prescribed. Drink plenty of fluids. Follow up with primary care provider. Return to ED if worsening symptoms or no improvement. Prescriptions: Dicyclomine [Bentyl] 20 mg PO QID PRN #21 tablet PRN Reason: Pain, Mild (1-3) Ondansetron [Zofran Odt] 4 mg PO Q8HR PRN #12 tab.rapdis PRN Reason: Nausea Referrals: PRIMARY CARE, [Primary Care Provider] - 3-5 Days Forms: Work/School Release Form(ED) Time of Disposition: 20:43
[2021-06-24 21:36] VITALS: BP 125/78
== END 2021-06-24 21:35 | disposition home or self-care (01) ==
LOC: ED 15:12
DX: R10.84 Generalized abdominal pain (principal); R11.2 Nausea with vomiting, unspecified; R19.7 Diarrhea, unspecified; F17.200 Nicotine dependence, unspecified, uncomplicated; F10.20 Alcohol dependence, uncomplicated; Z91.013 Allergy to seafood
CPT/HCPCS: 36415; 80053; 81001; 81025; 83690; 85027; 96372; 96374; 96375; 96376; 99283; J1200; J1885; J2270; J2405; J2765; J3490; Q0162

== ENCOUNTER 2021-11-04 10:24 | Emergency (ER) | payer SELFPAY ==
[2021-11-04] MEDS ORDERED: ONDANSETRON 4 MG/2 ML INJ IV ONE (11:24)
[2021-11-04] MEDS ORDERED: MORPHINE 4 MG/1 ML INJ IV ONE (11:24)
--- NOTE | 2021-11-04 12:07 | Emergency Department Report ---
<NAWAF ANDRADE - Last Filed: 11/04/21 14:56> ED General Adult HPI - General Chief complaint: Abdominal Pain Stated complaint: NAUSEA/VOMITING PUI?: No Time Seen by Provider: 11/04/21 11:11 Source: patient, EMS Mode of arrival: Stretcher Limitations: No Limitations - History of Present Illness Initial comments: Patient is a 26-year-old female who came in today with concerns of severe epigastric abdominal pain for the past 2 days which patient states she also has been vomiting "a lot". Patient states she was here back in June and that time, she was diagnosed with gastritis. Patient endorse only abdominal surgery in the past is 2 . At the time of my evaluation, patient endorse epigastric pain with nausea. Patient denies any other symptoms such as fever shortness of breath dizziness blurred vision lightheadedness headache tinnitus ear pain runny nose sore throat loss of taste loss of smell chest pain palpitation short of breath cough diarrhea constipation dysuria myalgia arthralgia new rash and heat or cold intolerance. Severity scale (0 -10): 10 - Related Data Previous Rx's Medication Instructions Recorded Last Taken Type Dicyclomine [Bentyl] 10 mg PO QID PRN #20 capsule 03/19/21 Unknown Rx Famotidine [Pepcid] 20 mg PO BID #20 tablet 03/19/21 Unknown Rx Ondansetron [Zofran ODT TAB] 4 mg PO Q8HR PRN #12 tab.rapdis 03/19/21 Unknown Rx amLODIPine 5 mg PO DAILY #30 tab 03/19/21 Unknown Rx Dicyclomine [Bentyl] 20 mg PO QID PRN #21 tablet 06/24/21 Unknown Rx Ondansetron [Zofran Odt] 4 mg PO Q8HR PRN #12 tab.rapdis 06/24/21 Unknown Rx Allergies Allergy/AdvReac Type Severity Reaction Status Date / Time shellfish derived Allergy Unknown Verified 11/04/21 10:30 ED Review of Systems Comment: All other systems reviewed and negative Constitutional: no symptoms reported Eyes: as per HPI ENT: as per HPI Respiratory: no symptoms reported Cardiovascular: as per HPI Endocrine: no symptoms reported Gastrointestinal: as per HPI Genitourinary: as per HPI Musculoskeletal: as per HPI Skin: as per HPI Neurological: as per HPI Psychiatric: as per HPI Hematological/Lymphatic: as per HPI ED Past Medical Hx - Past Medical History Previous Medical History?: Yes Hx Congestive Heart Failure: No Hx Diabetes: No Hx Asthma: No Hx COPD: No Hx HIV: Yes (Preeclampsia) Additional medical history: GASTRITIS - Surgical History Additional Surgical History: - Social History Smoking Status: Current Every Day Smoker Substance Use Type: Alcohol - Medications Home Medications: Home Medications Medication Instructions Recorded Confirmed Last Taken Type Dicyclomine [Bentyl] 10 mg PO QID PRN #20 capsule 03/19/21 Unknown Rx Famotidine [Pepcid] 20 mg PO BID #20 tablet 03/19/21 Unknown Rx Ondansetron [Zofran ODT TAB] 4 mg PO Q8HR PRN #12 tab.rapdis 03/19/21 Unknown Rx amLODIPine 5 mg PO DAILY #30 tab 03/19/21 Unknown Rx Dicyclomine [Bentyl] 20 mg PO QID PRN #21 tablet 06/24/21 Unknown Rx Ondansetron [Zofran Odt] 4 mg PO Q8HR PRN #12 tab.rapdis 06/24/21 Unknown Rx ED Physical Exam - General Limitations: No Limitations General appearance: alert, other (APPEARS TO BE IN DISTRESS) - Head Head exam: Present: atraumatic, normocephalic, normal inspection - Eye Eye exam: Present: normal appearance, PERRL, EOMI Pupils: Present: normal accommodation - ENT ENT exam: Present: normal exam, normal orophraynx, mucous membranes moist - Neck Neck exam: Present: normal inspection, full ROM - Respiratory Respiratory exam: Present: normal lung sounds bilaterally - Cardiovascular Cardiovascular Exam: Present: regular rate, normal rhythm - GI/Abdominal GI/Abdominal exam: Present: tenderness - Extremities Exam Extremities exam: Present: normal inspection, full ROM, normal capillary refill - Back Exam Back exam: Present: normal inspection, full ROM - Neurological Exam Neurological exam: Present: alert, altered, oriented X3, CN II-XII intact, normal gait - Psychiatric Psychiatric exam: Present: normal affect, normal mood - Skin Skin exam: Present: warm ED Course - Reevaluation(s) Reevaluation #1: 11/04/21 14:23 PREMEDICATING PATIENT WITH STEROID/ANTI-HISTAMINE PATIENT HAVE SHELLFISH ALLERGY. Reevaluation #2: 11/04/21 14:[address] TO BE DONE; I WILL SIGN OUT MY PATIENT CARE TO MY COLLEAGUE DR. CHAIREZ WHO WILL CONTINUE THE PATIENT CARE. ED Medical Decision Making - Lab Data Result diagrams: 11/04/21 11:25 11/04/21 11:25 ED Disposition Clinical Impression: Abdominal pain Disposition: 01 HOME / SELF CARE / HOMELESS Condition: Stable Instructions: Abdominal Pain (ED), Abdominal Pain, Adult Referrals: MEKA VELÁZQUEZ MD [Primary Care Provider] - 3-5 Days [facility] [Provider Group] - 3-5 Days <MOSES CHAIREZ - Last Filed: 11/04/21 18:56> ED Review of Systems ROS: Stated complaint: NAUSEA/VOMITING Other details as noted in HPI ED Course Vital Signs 11/04/21 10:28 Pulse Rate 84 Blood Pressure 148/106 [Left] O2 Sat by Pulse 98 Oximetry ED Medical Decision Making - Lab Data Result diagrams: 11/04/21 11:25 11/04/21 11:25 - EKG Data -: EKG Interpreted by Me EKG shows normal: sinus rhythm Rate: normal - EKG Data Interpretation: no acute changes - Radiology Data Radiology results: report reviewed - Medical Decision Making Patient stated that she is feeling much better. Labs reviewed and is unremarkable. CT abdomen and pelvis with IV contrast showed no acute abnormalities. Patient's symptoms most likely related to gastritis. I will start patient on Nexium and sucralfate and advised patient to follow-up with lead maintenance technician in the next 2 to 3 days and to return to the ER if she develop any new symptoms. Critical care attestation.: If time is entered above; I have spent that time in minutes in the direct care of this critically ill patient, excluding procedure time. ED Disposition Is pt being admited?: No
[2021-11-04 12:23] LABS: Basophils # (Auto) 0.1 K/mm3 (0.0-0.1); Basophils % (Auto) 0.7 % (0.0-1.8); Eosinophils % (Auto) 0.4 % (0.0-4.3); Hematocrit 41.4 % (30.3-42.9); Hemoglobin 13.4 gm/dl (10.1-14.3); Lymphocytes # (Auto) 1.5 K/mm3 (1.2-5.4); Lymphocytes % (Auto) 12.5 % (13.4-35.0); Mean Corpuscular HGB Conc 32 % (30-34); Mean Corpuscular Volume 79 fl (79-97); Monocytes # (Auto) 0.8 K/mm3 (0.0-0.8); Platelet Count 289 K/mm3 (140-440); Red Blood Count 5.23 M/mm3 (3.65-5.03); Red Cell Distribution Width 18.8 % (13.2-15.2)
[2021-11-04 12:45] LABS: Alanine Aminotransferase 22 units/L (7-56); Albumin 5.1 g/dL (3.9-5); BUN/Creatinine Ratio 15; Blood Urea Nitrogen 17 mg/dL (7-17); Calcium 10.8 mg/dL (8.4-10.2); Hemolysis Index 180
[2021-11-04] MEDS ORDERED: diphenhydrAMINE 50 MG/ML VIAL IV ONE (14:22)
[2021-11-04] MEDS ORDERED: methylPREDNISolone Sod Succinate 40 MG/1 ML INJ IV ONE (14:22)
--- NOTE | 2021-11-04 15:17 | Cat Scan Report ---
CT ABDOMEN AND PELVIS WITH CONTRAST INDICATION / CLINICAL INFORMATION: ABDOMINA PAIN. TECHNIQUE: Axial CT images were obtained through the abdomen and pelvis after 100 cc of Omnipaque [address] scans at this location are performed using CT dose reduction for ALARA by means of automated exposure control. COMPARISON: 03/19/2021 FINDINGS: LOWER CHEST: No significant abnormality. AORTA / ARTERIES: No significant abnormality. IVC / VEINS: No significant abnormality. LYMPH NODES: No significant adenopathy. COLON: No significant abnormality. APPENDIX: No significant abnormality. STOMACH / SMALL BOWEL: No significant abnormality. PERITONEUM: No free fluid. No free air. No fluid collection. LIVER: Decreased attenuation along the falciform ligament, most likely representing focal fatty infil tration. GALLBLADDER: No significant abnormality. BILE DUCTS: No significant abnormality. PANCREAS: No significant abnormality. SPLEEN: No significant abnormality. ADRENALS: No significant abnormality. RIGHT KIDNEY / URETER: No significant abnormality. LEFT KIDNEY / URETER: No significant abnormality. URINARY BLADDER: No significant abnormality. REPRODUCTIVE ORGANS: No significant abnormality. SKELETAL SYSTEM: No significant abnormality. ADDITIONAL FINDINGS: None. IMPRESSION: 1. No acute intra-abdominal or intrapelvic pathology. Signer Name: Thomas Joe DO Signed: 11/04/2021 3:13 PM Workstation Name: [id number]
[2021-11-04 18:31] LABS: Bilirubin,Urine NEG (Negative); Blood,Urine LG (Negative); Color,Urine Yellow (Yellow); Mucus,Urine FEW /HPF
[2021-11-04 18:54] LABS: Amphetamine Screen,Urine Negative; Benzodiazepines Screen,Urine Negative; Cocaine Screen,Urine Negative; Methadone Screen,Urine Negative
[2021-11-04 19:11] VITALS: BP 134/97
[2021-11-04 19:51] LABS: Cannabinoid Screen,Urine Positive; Opiate Screen,Urine Positive
== END 2021-11-04 19:09 | disposition home or self-care (01) ==
LOC: ED 10:24
DX: R10.13 Epigastric pain (principal); R11.2 Nausea with vomiting, unspecified; F17.200 Nicotine dependence, unspecified, uncomplicated; Z98.890 Other specified postprocedural states; Z72.89 Other problems related to lifestyle; Z91.013 Allergy to seafood; Z79.899 Other long term (current) drug therapy
CPT/HCPCS: 36415; 74177; 80053; 80307; 81001; 82140; 82962; 83690; 83735; 84703; 85025; 96374; 96375; 99284; J1200; J2270; J2405; J2920; Q9967